=== PATIENT | female | born 1960 | race Caucasian/White ===

== ENCOUNTER 2016-12-05 12:17 | Emergency (ER) | payer MEDICARE, SELFPAY ==
--- NOTE | 2016-12-05 13:50 | EDM.PDOC ---
ED HPI GENERAL MEDICAL PROBLEM - General Chief Complaint: General Stated Complaint: COPD Time Seen by Provider: 12/05/16 12:55 Source of Information: Reports: Patient History Limitations: Reports: No Limitations - History of Present Illness INITIAL COMMENTS - FREE TEXT/NARRATIVE: Pt states that she is "probably going to get diagnosed with COPD on December 13 because that is when I am getting a Ct scan. I am having pain on my whole right side from the COPD, I don't know what the symptoms are but it seems to go together". States that she is on percocet for pain but ran out and because she was smoking marijuana, she lost her contract with the pain clinic. States that the pain causes pressure and she feels like she may "white out but not black out " . Pt very anxious and jittery, diaphoretic, but denies any n/v/d or other symptoms. Pt began crying when telling the story of how she is out of meds and she needs some to make it to her appointment. States that she has drank this am 3 beers and it helped with her pain. Onset: Unknown/Unsure Duration: Getting Worse Location: Reports: Lower Extremity, Left, Generalized (right side) Quality: Reports: Pressure Improves with: Reports: Medication (percocet) Worsens with: Reports: Movement Right Generalized Pain Score (Numeric/FACES): 10 - Related Data Allergies Allergy/AdvReac Type Severity Reaction Status Date / Time cefaclor [From Ceclor] Allergy Unknown Shortness Unverified 12/05/16 12:48 of Breath celecoxib [From Celebrex] Allergy Unknown UNKNOWN Unverified 12/05/16 12:48 fluticasone [From Flonase] Allergy Unknown Shortness Unverified 12/05/16 12:48 of Breath ibuprofen Allergy Unknown UNKNOWN Unverified 12/05/16 12:48 propoxyphene Allergy Unknown UNKNOWN Unverified 12/05/16 12:48 Home Meds: Home Meds . [Unable to Verify Home Med List] 12/05/16 [History] Past Medical History HEENT History: Reports: Impaired Vision Psychiatric History: Reports: Anxiety, Depression - Past Surgical History HEENT Surgical History: Reports: Other (See Below) Other HEENT Surgeries/Procedures: jaw surgery, TMJ GI Surgical History: Reports: Cholecystectomy, Hernia, Inguinal Social & Family History - Family History Family Medical History: Noncontributory - Tobacco Use Smoking Status *Q: Current Every Day Smoker Years of Tobacco use: 38 Packs/Tins Daily: 1 - Caffeine Use Caffeine Use: Reports: Coffee, Soda - Alcohol Use Days Per Week of Alcohol Use: 5 Number of Drinks Per Day: 3 Total Drinks Per Week: 15 - Recreational Drug Use Recreational Drug Use: Yes Drug Use in Last 12 Months: Yes Recreational Drug Type: Reports: Marijuana/Hashish Recreational Drug Use Frequency: Daily ED ROS GENERAL - Review of Systems Review Of Systems: See Below Constitutional: Reports: Diaphoresis Musculoskeletal: Reports: Muscle Stiffness ED EXAM, GENERAL - Physical Exam Exam: See Below Exam Limited By: No Limitations General Appearance: Alert, WD/WN, No Apparent Distress Eye Exam: Bilateral Eye: PERRL Nose: Normal Inspection, Normal Mucosa, No Blood Throat/Mouth: Normal Inspection, Normal Lips, Normal Teeth, Normal Gums, Normal Oropharynx, Normal Voice, No Airway Compromise Head: Atraumatic, Normocephalic Neck: Normal Inspection, Supple, Non-Tender, Full Range of Motion Respiratory/Chest: No Respiratory Distress, Lungs Clear, Normal Breath Sounds, No Accessory Muscle Use, Chest Non-Tender Cardiovascular: Normal Peripheral Pulses, Regular Rate, Rhythm, No Edema, No Gallop, No JVD, No Murmur, No Rub Back Exam: Normal Inspection, Full Range of Motion, NT Neurological: Alert, Oriented, CN II-XII Intact, Normal Cognition, Normal Gait, Normal Reflexes, No Motor/Sensory Deficits Psychiatric: Anxious, Tearful Skin Exam: Diaphoretic Course - Vital Signs Last Recorded V/S: Last Vital Signs Temp 96.2 F 12/05/16 12:27 Pulse 128 H 12/05/16 12:27 Resp 18 12/05/16 12:27 BP 139/98 H 12/05/16 12:27 Pulse Ox 97 12/05/16 12:27 - Re-Assessments/Exams Free Text/Narrative Re-Assessment/Exam: 12/05/16 12:55 informed pt that due to her symptoms, an chest x-ray and neck x-ray would need to be obtained to rule out any major injuries. Pt refused and stated that she did not need that bc she had an MRI last year and she just needed medication to get her through until her appointment. 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 Pt states " i really don't need another bill , so I will just go home and try to manage the pain myself, I have other stuff I can take to help like marijuana." Pt signed out AMA after I explained the risk of not obtaining appropriate exams to evaluate her condition. Pt verbalizes understanding. Departure - Departure Time of Disposition: 13:05 Disposition: Against Medical Advice 07 Preliminary Cause of *Q: Sepsis & Multi System Organ Failure Condition: Good Clinical Impression: Chronic pain Qualifiers: Chronic pain type: other chronic pain Qualified Code(s): G89.29 - Other chronic pain - Discharge Information Forms: ED Department Discharge Additional Instructions: return for any worsening symptoms.
== END 2016-12-05 13:10 | disposition left against medical advice (07) ==
LOC: DL.ED 12:17
CPT/HCPCS: 99281; 99282

== ENCOUNTER 2017-01-30 07:40 | Emergency (ER) | payer MEDICARE, SELFPAY ==
[2017-01-30] MEDS ORDERED: HYDROmorphone 1 MG/ML Syringe IVPUSH ONE (08:31)
--- NOTE | 2017-01-30 08:49 | EDM.PDOC ---
ED HPI GENERAL MEDICAL PROBLEM - General Chief Complaint: Neurological Problem Stated Complaint: PAIN, RT SIDE Time Seen by Provider: 01/30/17 08:30 Source of Information: Reports: Patient History Limitations: Reports: No Limitations - History of Present Illness INITIAL COMMENTS - FREE TEXT/NARRATIVE: This 56 yo female patient reports to the ED with increased pain on her right side. The patient reports her pain is an acute onset of increased chronic pain. The patient reports she has seen Dr. Durant for management (was started on Oxycodone, but the pain medication was stopped due to the patient smoking marijuana). The patient was then referred to pain management. The patient reports that during her pain management appointments she saw cardiology, physical therapy, and a kidney specialist. The patient reports she had to request an appointment with a neurologist. Once the patient finally saw a neurologist, she was given an injection in her back. The patient reports her pain has been getting worse over the past 2-3 days. The patient reports she has been smoking marijuana, taking muscle relaxers and continues to be in the bathtub. The patient believes she has an appointment with Dr. Durant either this week or next week. The patient also reports she has a follow-up appointment with neurology in about 1 month. Onset: Gradual Duration: Chronic, Getting Worse Location: Reports: Upper Extremity, Right, Lower Extremity, Right Quality: Reports: Ache, Sharp Severity: Severe Improves with: Reports: Other (Tylenol, aspirin and baths) Worsens with: Reports: Movement Context: Reports: Other Right Pain Score (Numeric/FACES): 10 - Related Data Allergies Allergy/AdvReac Type Severity Reaction Status Date / Time cefaclor [From Ceclor] Allergy Unknown Shortness Verified 01/30/17 09:20 of Breath celecoxib [From Celebrex] Allergy Unknown UNKNOWN Verified 01/30/17 09:20 ibuprofen Allergy Unknown UNKNOWN Verified 01/30/17 09:20 propoxyphene Allergy Unknown UNKNOWN Verified 01/30/17 09:20 Home Meds: Home Meds Albuterol [IJD: Ventolin HFA] 2 puff INH ASDIRECTED PRN 01/30/17 [History] Azelastine [Astelin Nasal Soln] 2 puff .ROUTE BID 01/30/17 [History] Budesonide/Formoterol [Symbicort 160-4.5 MCG] 2 puff INH BID 01/30/17 [History] Rosuvastatin Calcium 1 tab PO BEDTIME 01/30/17 [History] Venlafaxine HCl [Venlafaxine HCl] 2 tab PO BID 01/30/17 [History] tiZANidine [Zanaflex] 1 tab PO TID 01/30/17 [History] traZODone HCl [Trazodone HCl] 1 tab PO BEDTIME 01/30/17 [History] Past Medical History HEENT History: Reports: Impaired Vision Cardiovascular History: Reports: High Cholesterol Respiratory History: Reports: Asthma Musculoskeletal History: Reports: Other (See Below) Other Musculoskeletal History: chronic nerve pain to the right side of her body Psychiatric History: Reports: Anxiety, Depression - Past Surgical History HEENT Surgical History: Reports: Other (See Below) Other HEENT Surgeries/Procedures: jaw surgery, TMJ GI Surgical History: Reports: Cholecystectomy, Hernia, Inguinal Social & Family History - Family History Family Medical History: Noncontributory - Tobacco Use Smoking Status *Q: Current Status Unknown Years of Tobacco use: 38 Packs/Tins Daily: 1 Tobacco Use Comment: used chantix, states at this time she is not smoking. - Caffeine Use Caffeine Use: Reports: Soda - Alcohol Use Days Per Week of Alcohol Use: 5 Number of Drinks Per Day: 3 Total Drinks Per Week: 15 - Recreational Drug Use Recreational Drug Use: Yes Drug Use in Last 12 Months: Yes Recreational Drug Type: Reports: Marijuana/Hashish Recreational Drug Use Frequency: Daily ED ROS GENERAL - Review of Systems Review Of Systems: ROS reveals no pertinent complaints other than HPI. ED EXAM, NEURO - Physical Exam Exam: See Below Exam Limited By: No Limitations General Appearance: Alert, WD/WN, Moderate Distress, Thin Eye Exam: Bilateral Eye: EOMI, Normal Inspection, PERRL (sluggish, but reactive) Ears: Normal External Exam, Normal Canal, Hearing Grossly Normal, Normal TMs Nose: Normal Inspection, Normal Mucosa, No Blood Throat/Mouth: Normal Inspection, Normal Lips, Normal Teeth, Normal Gums, Normal Oropharynx, Normal Voice, No Airway Compromise Head Exam: Atraumatic, Normocephalic Neck: Normal Inspection, Supple, Non-Tender, Full Range of Motion Respiratory/Chest: No Respiratory Distress, Lungs Clear, Normal Breath Sounds, No Accessory Muscle Use, Chest Non-Tender Cardiovascular: Normal Peripheral Pulses, Regular Rate, Rhythm, No Edema, No Gallop, No JVD, No Murmur, No Rub GI/Abdominal: Normal Bowel Sounds, Soft, Non-Tender, No Organomegaly, No Distention, No Abnormal Bruit, No Mass (Female) Exam: Deferred Rectal (Female) Exam: Deferred Neurological: Alert, Normal Mood/Affect, Difficulty Walking Back Exam: Paraspinal Tenderness (right lower back) Extremities: Normal Inspection, Normal Range of Motion, Non-Tender, No Pedal Edema, Normal Capillary Refill Psychiatric: Anxious, Depressed Mood, Tearful Skin Exam: Warm, Dry, Intact, Normal Color, No Rash Course - Vital Signs Last Recorded V/S: Last Vital Signs Temp 35.9 C 01/30/17 07:55 Pulse 109 H 01/30/17 07:55 Resp 20 01/30/17 07:55 BP 124/89 01/30/17 07:55 Pulse Ox 98 01/30/17 07:55 - Orders/Labs/Meds Labs: Laboratory Tests 01/30/17 01/30/17 01/30/17 Range/Units 08:47 08:47 08:47 WBC 16.9 H (5.0-10.0) 10^3/uL RBC 4.59 (4.2-5.4) 10^6/uL Hgb 15.8 (12.0-16.0) g/dL Hct 47.8 H (37.0-47.0) % MCV 104.1 H (80-100) fL MCH 34.4 H (27.0-34.0) pg MCHC 33.1 (33.0-35.0) g/dL Plt Count 565 H (150-450) 10^3/uL Neut % (Auto) 72.7 (42.2-75.2) % Lymph % (Auto) 18.8 L (20.5-50.1) % [place] % (Auto) 8.1 H (2-8) % Eos % (Auto) 0.1 L (1.0-3.0) % Baso % (Auto) 0.3 (0.0-1.0) % Sodium 137 (135-145) mmol/L Potassium 4.4 (3.6-5.0) mmol/L Chloride 97 L (101-111) mmol/L Carbon Dioxide 27.0 (21.0-31.0) mmol/L Anion Gap 17.4 BUN 19 H (7-18) mg/dL Creatinine 0.9 (0.6-1.3) mg/dL Est Cr Clr Drug Dosing TNP Estimated GFR (MDRD) > 60 BUN/Creatinine Ratio 21.11 Glucose 116 H (74-105) mg/dL Calcium 9.9 (8.4-10.2) mg/dl Total Bilirubin 0.7 (0.2-1.0) mg/dL AST 25 (10-42) IU/L ALT 16 (10-60) IU/L Alkaline Phosphatase 85 (42-121) IU/L Total Protein 8.5 H (6.7-8.2) g/dl Albumin 4.9 (3.2-5.5) g/dl Globulin 3.6 Albumin/Globulin Ratio 1.36 Urine Color (YELLOW) Urine Appearance (CLEAR) Urine pH (5.0-9.0) Ur Specific [place] (1.005-1.030) Urine Protein (NEGATIVE) Urine Glucose (UA) (NEGATIVE) Urine Ketones (NEGATIVE) Urine Occult Blood (NEGATIVE) Urine Nitrite (NEGATIVE) Urine Bilirubin (NEGATIVE) Urine Urobilinogen (0.2-1.0) mg/dL Ur Leukocyte Esterase (NEGATIVE) Urine RBC /HPF Urine WBC (0-5/HPF) /HPF Ur Epithelial Cells /HPF Urine Bacteria (0-FEW/HPF) /HPF Hyaline Casts /LPF Urine Mucus /LPF Urine Opiates Screen (NEGATIVE) Ur Oxycodone Screen (NEGATIVE) Urine Methadone Screen (NEGATIVE) Ur Barbiturates Screen (NEGATIVE) U Tricyclic Antidepress (NEGATIVE) Ur Phencyclidine Scrn (NEGATIVE) Ur Amphetamine Screen (NEGATIVE) U Methamphetamines Scrn (NEGATIVE) Urine MDMA Screen (NEGATIVE) U Benzodiazepines Scrn (NEGATIVE) Urine Cocaine Screen (NEGATIVE) U Marijuana (THC) Screen (NEGATIVE) Ethyl Alcohol < 5 mg/dL 01/30/17 01/30/17 Range/Units 08:48 08:48 WBC (5.0-10.0) 10^3/uL RBC (4.2-5.4) 10^6/uL Hgb (12.0-16.0) g/dL Hct (37.0-47.0) % MCV (80-100) fL MCH (27.0-34.0) pg MCHC (33.0-35.0) g/dL Plt Count (150-450) 10^3/uL Neut % (Auto) (42.2-75.2) % Lymph % (Auto) (20.5-50.1) % [place] % (Auto) (2-8) % Eos % (Auto) (1.0-3.0) % Baso % (Auto) (0.0-1.0) % Sodium (135-145) mmol/L Potassium (3.6-5.0) mmol/L Chloride (101-111) mmol/L Carbon Dioxide (21.0-31.0) mmol/L Anion Gap BUN (7-18) mg/dL Creatinine (0.6-1.3) mg/dL Est Cr Clr Drug Dosing Estimated GFR (MDRD) BUN/Creatinine Ratio Glucose (74-105) mg/dL Calcium (8.4-10.2) mg/dl Total Bilirubin (0.2-1.0) mg/dL AST (10-42) IU/L ALT (10-60) IU/L Alkaline Phosphatase (42-121) IU/L Total Protein (6.7-8.2) g/dl Albumin (3.2-5.5) g/dl Globulin Albumin/Globulin Ratio Urine Color Straw (YELLOW) Urine Appearance Cloudy (CLEAR) Urine pH 5.5 (5.0-9.0) Ur Specific Bowie 1.020 (1.005-1.030) Urine Protein 30 H (NEGATIVE) Urine Glucose (UA) Negative (NEGATIVE) Urine Ketones Trace H (NEGATIVE) Urine Occult Blood Trace-lysed H (NEGATIVE) Urine Nitrite Negative (NEGATIVE) Urine Bilirubin Moderate H (NEGATIVE) Urine Urobilinogen 0.2 (0.2-1.0) mg/dL Ur Leukocyte Esterase Negative (NEGATIVE) Urine RBC 0-5 /HPF Urine WBC 0-5 (0-5/HPF) /HPF Ur Epithelial Cells Many H /HPF Urine Bacteria Moderate H (0-FEW/HPF) /HPF Hyaline Casts Few H /LPF Urine Mucus Many H /LPF Urine Opiates Screen Negative (NEGATIVE) Ur Oxycodone Screen Positive H (NEGATIVE) Urine Methadone Screen Negative (NEGATIVE) Ur Barbiturates Screen Negative (NEGATIVE) U Tricyclic Antidepress Negative (NEGATIVE) Ur Phencyclidine Scrn Negative (NEGATIVE) Ur Amphetamine Screen Negative (NEGATIVE) U Methamphetamines Scrn Negative (NEGATIVE) Urine MDMA Screen Negative (NEGATIVE) U Benzodiazepines Scrn Negative (NEGATIVE) Urine Cocaine Screen Negative (NEGATIVE) U Marijuana (THC) Screen Positive H (NEGATIVE) Ethyl Alcohol mg/dL Meds: Medications Discontinued Medications Generic Name Dose Route Start Last Admin Trade Name Beatriz PRN Reason Stop Dose Admin Gabapentin 300 mg 01/30/17 09:24 Neurontin PO 01/30/17 09:25 ONETIME ONE Hydromorphone HCl 1 mg 01/30/17 08:31 01/30/17 08:45 Dilaudid IVPUSH 01/30/17 08:32 1 mg ONETIME ONE Administration Methylprednisolone Sodium Succinate 40 mg 01/30/17 09:24 01/30/17 09:31 Solu-Medrol IVPUSH 01/30/17 09:25 40 mg ONETIME ONE Administration Departure - Departure Time of Disposition: 09:43 Disposition: Home, Self-Care 01 Condition: Fair Clinical Impression: Neuropathy Chronic pain Qualifiers: Chronic pain type: other chronic pain Qualified Code(s): G89.29 - Other chronic pain - Discharge Information Instructions: Neuropathic Pain, Chronic Pain Forms: ED Department Discharge Care Plan Goals: The patient was advised of the examination and lab results during the visit. The patient was given a dose of IV Dilaudid, IV SoluMedrol and PO Gabapentin. The patient was discharged with a script for Gabapentin (300 mg) #20 to take 1 by mouth daily for nerve pain. The patient should follow-up with her primary care facility for continued evaluation and further treatment. If the patient has any additional symptoms or concerns, the patient should visit her primary care facility or return to the emergency department.
[2017-01-30 09:13] LABS: CHLORIDE,CL 97 mmol/L (101-111); SODIUM,NA 137 mmol/L (135-145)
[2017-01-30] MEDS ORDERED: methylPREDNISolone Sodium Succinate 40 MG/1 ML SDV IVPUSH ONE (09:24)
[2017-01-30] MEDS ORDERED: Gabapentin 300 MG Cap PO ONE (09:24)
[2017-01-30 09:31] VITALS: BP 124/89
== END 2017-01-30 10:05 | disposition home or self-care (01) ==
LOC: DL.ED 07:40
DX: G62.9 Polyneuropathy, unspecified (principal); G89.29 Other chronic pain; E78.00 Pure hypercholesterolemia, unspecified; H54.7 Unspecified visual loss; J45.909 Unspecified asthma, uncomplicated; F41.9 Anxiety disorder, unspecified; F32.9 Major depressive disorder, single episode, unspecified; Z90.49 Acquired absence of other specified parts of digestive tract; Z88.8 Allergy status to other drugs, medicaments and biological substances
CPT/HCPCS: 36415; 80053; 80305; 81001; 85025; 96374; 96375; 99283; A9270; G0480; J1170; J2920

== ENCOUNTER 2017-02-01 03:40 | Emergency (ER) | payer MEDICARE, SELFPAY ==
[2017-02-01 03:58] VITALS: BP 160/122
[2017-02-01] MEDS ORDERED: Promethazine 25 MG/ML SDV IM ONE (04:16)
[2017-02-01] MEDS ORDERED: Butorphanol 2 MG/ML SDV IM ONE (04:16)
--- NOTE | 2017-02-01 04:17 | EDM.PDOC ---
ED HPI GENERAL MEDICAL PROBLEM - General Chief Complaint: General Stated Complaint: PAIN Time Seen by Provider: 02/01/17 04:12 Source of Information: Reports: Patient, Old Records History Limitations: Reports: No Limitations - History of Present Illness INITIAL COMMENTS - FREE TEXT/NARRATIVE: was seen here 2 days ago for same, states [place] not helping & has appt with Neuro next week for more tests. states had injection from Neuro 5 years ago that evidently wored off now pain back and it's her entire right side of body. Right Generalized Pain Score (Numeric/FACES): 10 - Related Data Allergies Allergy/AdvReac Type Severity Reaction Status Date / Time cefaclor [From Ceclor] Allergy Unknown Shortness Verified 01/30/17 09:20 of Breath celecoxib [From Celebrex] Allergy Unknown UNKNOWN Verified 01/30/17 09:20 ibuprofen Allergy Unknown UNKNOWN Verified 01/30/17 09:20 propoxyphene Allergy Unknown UNKNOWN Verified 01/30/17 09:20 Home Meds: Home Meds Albuterol [IJD: Ventolin HFA] 2 puff INH ASDIRECTED PRN 01/30/17 [History] Azelastine [Astelin Nasal Soln] 2 puff .ROUTE BID 01/30/17 [History] Budesonide/Formoterol [Symbicort 160-4.5 MCG] 2 puff INH BID 01/30/17 [History] Rosuvastatin Calcium 1 tab PO BEDTIME 01/30/17 [History] Venlafaxine HCl [Venlafaxine HCl] 2 tab PO BID 01/30/17 [History] tiZANidine [Zanaflex] 1 tab PO TID 01/30/17 [History] traZODone HCl [Trazodone HCl] 1 tab PO BEDTIME 01/30/17 [History] Past Medical History HEENT History: Reports: Impaired Vision Cardiovascular History: Reports: High Cholesterol Respiratory History: Reports: Asthma Musculoskeletal History: Reports: Other (See Below) Other Musculoskeletal History: chronic nerve pain to the right side of her body Psychiatric History: Reports: Anxiety, Depression - Past Surgical History HEENT Surgical History: Reports: Other (See Below) Other HEENT Surgeries/Procedures: jaw surgery, TMJ GI Surgical History: Reports: Cholecystectomy, Hernia, Inguinal Social & Family History - Family History Family Medical History: Noncontributory - Tobacco Use Smoking Status *Q: Current Status Unknown Years of Tobacco use: 38 Packs/Tins Daily: 1 - Caffeine Use Caffeine Use: Reports: Soda - Alcohol Use Days Per Week of Alcohol Use: 5 Number of Drinks Per Day: 3 Total Drinks Per Week: 15 - Recreational Drug Use Recreational Drug Use: Yes Drug Use in Last 12 Months: Yes Recreational Drug Type: Reports: Marijuana/Hashish Recreational Drug Use Frequency: Daily ED ROS GENERAL - Review of Systems Review Of Systems: ROS reveals no pertinent complaints other than HPI. ED EXAM, GENERAL - Physical Exam Exam: See Below Exam Limited By: No Limitations General Appearance: Alert, WD/WN, Mild Distress, Other (crying writhing on gurney, restless.) Eye Exam: Bilateral Eye: PERRL (pupils ER @ 4mm) Ears: Hearing Grossly Normal Throat/Mouth: Normal Voice, No Airway Compromise Head: Atraumatic Neck: Non-Tender, Full Range of Motion Respiratory/Chest: No Respiratory Distress Cardiovascular: Regular Rate, Rhythm GI/Abdominal: Soft, Non-Tender Back Exam: Normal Inspection, Full Range of Motion Extremities: Normal Inspection Neurological: Alert, Oriented, Normal Cognition, Normal Gait, No Motor/Sensory Deficits Psychiatric: Anxious, Tearful Skin Exam: Warm, Dry, Normal Color Lymphatic: No Adenopathy Course - Vital Signs Last Recorded V/S: Last Vital Signs Temp Pulse 92 02/01/17 03:57 Resp 20 02/01/17 03:57 BP 160/122 H 02/01/17 03:57 Pulse Ox 100 02/01/17 03:57 - Orders/Labs/Meds Meds: Medications Discontinued Medications Generic Name Dose Route Start Last Admin Trade Name Beatriz PRN Reason Stop Dose Admin Butorphanol Tartrate 2 mg 02/01/17 04:16 02/01/17 04:24 Stadol IM 02/01/17 04:17 2 mg ONETIME ONE Administration Promethazine HCl 25 mg 02/01/17 04:16 02/01/17 04:24 Phenergan IM 02/01/17 04:17 25 mg ONETIME ONE Administration Departure - Departure Time of Disposition: 04:52 Disposition: Home, Self-Care 01 Condition: Fair Clinical Impression: Neuropathy - Discharge Information Instructions: Neuropathic Pain Referrals: PCP,None [Primary Care Provider] - Forms: ED Department Discharge Additional Instructions: 1) follow up with family doctor or clinic or [facility]. 2) recheck as needed
== END 2017-02-01 04:49 | disposition home or self-care (01) ==
LOC: DL.ED 03:40
DX: G62.9 Polyneuropathy, unspecified (principal); H54.7 Unspecified visual loss; E78.00 Pure hypercholesterolemia, unspecified; Z90.49 Acquired absence of other specified parts of digestive tract; Z88.8 Allergy status to other drugs, medicaments and biological substances
CPT/HCPCS: 96372; 99283; J0595; J2550

== ENCOUNTER 2017-05-06 08:41 | Emergency (ER) | payer MEDICARE, OTHER, SELFPAY ==
--- NOTE | 2017-05-06 08:45 | EDM.PDOC ---
ED HPI GENERAL MEDICAL PROBLEM - General Chief Complaint: Upper Extremity Injury/Pain Stated Complaint: SICK Time Seen by Provider: 05/06/17 08:44 Source of Information: Reports: Patient, RN, RN Notes Reviewed History Limitations: Reports: No Limitations - History of Present Illness INITIAL COMMENTS - FREE TEXT/NARRATIVE: Pt presents to the ER with c/o "nerve pain" on the entire right side of her body. She states she has had injections about 5-6 years ago. She states she has been doctoring with Dr. Durant, but "nothing has been working". The patient continued stating that her constant pain is from the "nerve pain" and the prior injections. She states she has been nauseated with vomiting of green/yellow bile appearing production. Pt admits to numbness in 3 toes on the right foot, as well as tingling down the right arm. Patient states she finds it difficult to find a comfortable position, but that the bath tub works at times. Patient admits to numbness to the right side of her face at times, as well as headaches to the right side of the head. She denies fever or chills, abdominal pain or diarrhea. Onset: Unknown/Unsure Location: Reports: Lower Extremity, Left, Lower Extremity, Right, Generalized ( right side of body) Quality: Reports: Burning Severity: Severe Improves with: Reports: None Worsens with: Reports: None Associated Symptoms: Reports: Nausea/Vomiting Right Generalized Pain Score (Numeric/FACES): 10 - Related Data Allergies Allergy/AdvReac Type Severity Reaction Status Date / Time cefaclor [From Ceclor] Allergy Unknown Shortness Verified 01/30/17 09:20 of Breath celecoxib [From Celebrex] Allergy Unknown UNKNOWN Verified 01/30/17 09:20 ibuprofen Allergy Unknown UNKNOWN Verified 01/30/17 09:20 propoxyphene Allergy Unknown UNKNOWN Verified 01/30/17 09:20 Home Meds: Home Meds Albuterol [IJD: Ventolin HFA] 2 puff INH ASDIRECTED PRN 01/30/17 [History] Azelastine [Astelin Nasal Soln] 2 puff .ROUTE BID 01/30/17 [History] Budesonide/Formoterol [Symbicort 160-4.5 MCG] 2 puff INH BID 01/30/17 [History] Rosuvastatin Calcium 1 tab PO BEDTIME 01/30/17 [History] Venlafaxine HCl [Venlafaxine HCl] 2 tab PO BID 01/30/17 [History] tiZANidine [Zanaflex] 1 tab PO BID 01/30/17 [History] traZODone HCl [Trazodone HCl] 1 tab PO BEDTIME 01/30/17 [History] Gabapentin [Neurontin] 1 cap PO BID 05/06/17 [History] Past Medical History HEENT History: Reports: Impaired Vision Cardiovascular History: Reports: High Cholesterol Respiratory History: Reports: Asthma Musculoskeletal History: Reports: Other (See Below) Other Musculoskeletal History: chronic nerve pain to the right side of her body Psychiatric History: Reports: Anxiety, Depression - Past Surgical History HEENT Surgical History: Reports: Other (See Below) Other HEENT Surgeries/Procedures: jaw surgery, TMJ GI Surgical History: Reports: Cholecystectomy, Hernia, Inguinal Social & Family History - Family History Family Medical History: Noncontributory - Tobacco Use Smoking Status *Q: Current Status Unknown Years of Tobacco use: 38 Packs/Tins Daily: 1 - Caffeine Use Caffeine Use: Reports: Soda - Alcohol Use Days Per Week of Alcohol Use: 5 Number of Drinks Per Day: 3 Total Drinks Per Week: 15 - Recreational Drug Use Recreational Drug Use: Yes Drug Use in Last 12 Months: Yes Recreational Drug Type: Reports: Marijuana/Hashish Recreational Drug Use Frequency: Daily ED ROS GENERAL - Review of Systems Review Of Systems: ROS reveals no pertinent complaints other than HPI. ED EXAM, GENERAL - Physical Exam Exam: See Below Exam Limited By: Other (Patient very anxious, up ambulating, cannot sit still, flight of ideas and thoughts) General Appearance: Alert, Anxious, Moderate Distress Eye Exam: Bilateral Eye: Conjunctival Injection, EOMI Ears: Normal External Exam, Hearing Grossly Normal Nose: Normal Inspection Throat/Mouth: Normal Inspection, Normal Voice, No Airway Compromise Head: Atraumatic, Normocephalic Neck: Normal Inspection, Supple, Non-Tender, Full Range of Motion Respiratory/Chest: No Respiratory Distress, Lungs Clear (diminished), No Accessory Muscle Use, Chest Non-Tender Cardiovascular: Normal Peripheral Pulses, Regular Rate, Rhythm, No Edema, No Gallop, No JVD, No Murmur, No Rub Peripheral Pulses: 2+: Radial (L), Radial (R) GI/Abdominal: Normal Bowel Sounds, Soft, Non-Tender, No Organomegaly, No Distention, No Abnormal Bruit, No Mass (Female) Exam: Deferred Rectal (Female) Exam: Deferred Back Exam: Normal Inspection, Full Range of Motion Extremities: Normal Inspection, Normal Range of Motion, Non-Tender, No Pedal Edema, Normal Capillary Refill Neurological: Alert, Oriented, Other (numbness to toes on the right foot, numbness to the right side of the face, tingling down right arm) Psychiatric: Anxious, Tearful, Other (flight of thoughts, very anxious and restless) Skin Exam: Warm, Dry, Intact, Normal Color, No Rash Lymphatic: No Adenopathy Course - Vital Signs Last Recorded V/S: Last Vital Signs Temp 96.1 F 05/06/17 08:42 Pulse 101 H 05/06/17 08:42 Resp 18 05/06/17 08:42 BP 126/90 05/06/17 08:42 Pulse Ox 97 05/06/17 08:42 - Orders/Labs/Meds Orders: Active Orders 24 hr Category Date Time Status Peripheral IV Care [RC] . DIRECTED Care 05/06/17 08:58 Active Sodium Chloride 0.9% [Saline Flush] Med 05/06/17 08:58 Active 10 ml FLUSH ASDIRECTED PRN Peripheral IV Insertion Adult [OM.PC] Stat Oth 05/06/17 08:57 Ordered Medication Orders Sodium Chloride (Saline Flush) 10 ml FLUSH ASDIRECTED PRN PRN Reason: Keep Vein Open Last Admin: 05/06/17 09:11 Dose: 10 ml Labs: Laboratory Tests 05/06/17 05/06/17 05/06/17 Range/Units 09:10 09:10 09:10 WBC 15.7 H (5.0-10.0) 10^3/uL RBC 4.50 (4.2-5.4) 10^6/uL Hgb 15.1 (12.0-16.0) g/dL Hct 46.2 (37.0-47.0) % MCV 102.7 H (80-100) fL MCH 33.6 (27.0-34.0) pg MCHC 32.7 L (33.0-35.0) g/dL Plt Count 581 H (150-450) 10^3/uL Neut % (Auto) 76.6 H (42.2-75.2) % Lymph % (Auto) 15.4 L (20.5-50.1) % [place] % (Auto) 7.6 (2-8) % Eos % (Auto) 0.1 L (1.0-3.0) % Baso % (Auto) 0.3 (0.0-1.0) % Sodium 138 (135-145) mmol/L Potassium 4.5 (3.6-5.0) mmol/L Chloride 103 (101-111) mmol/L Carbon Dioxide 25.0 (21.0-31.0) mmol/L Anion Gap 14.5 BUN 6 L (7-18) mg/dL Creatinine 0.9 (0.6-1.3) mg/dL Est Cr Clr Drug Dosing 65.34 mL/min Estimated GFR (MDRD) > 60 BUN/Creatinine Ratio 6.66 Glucose 132 H (74-105) mg/dL Calcium 9.8 (8.4-10.2) mg/dl Magnesium 2.0 (1.8-2.5) mg/dL Total Bilirubin 0.7 (0.2-1.0) mg/dL AST 25 (10-42) IU/L ALT 21 (10-60) IU/L Alkaline Phosphatase 102 (42-121) IU/L Total Protein 7.9 (6.7-8.2) g/dl Albumin 4.5 (3.2-5.5) g/dl Globulin 3.4 Albumin/Globulin Ratio 1.32 Amylase 39 (28-100) U/L Lipase 27 (22-51) U/L Urine Color (YELLOW) Urine Appearance (CLEAR) Urine pH (5.0-9.0) Ur Specific [place] (1.005-1.030) Urine Protein (NEGATIVE) Urine Glucose (UA) (NEGATIVE) Urine Ketones (NEGATIVE) Urine Occult Blood (NEGATIVE) Urine Nitrite (NEGATIVE) Urine Bilirubin (NEGATIVE) Urine Urobilinogen (0.2-1.0) mg/dL Ur Leukocyte Esterase (NEGATIVE) Urine RBC /HPF Urine WBC (0-5/HPF) /HPF Ur Epithelial Cells /HPF Urine Bacteria (0-FEW/HPF) /HPF Urine Mucus /LPF Urine Yeast (0/HPF) /HPF Urine Opiates Screen (NEGATIVE) Ur Oxycodone Screen (NEGATIVE) Urine Methadone Screen (NEGATIVE) Ur Barbiturates Screen (NEGATIVE) U Tricyclic Antidepress (NEGATIVE) Ur Phencyclidine Scrn (NEGATIVE) Ur Amphetamine Screen (NEGATIVE) U Methamphetamines Scrn (NEGATIVE) Urine MDMA Screen (NEGATIVE) U Benzodiazepines Scrn (NEGATIVE) Urine Cocaine Screen (NEGATIVE) U Marijuana (THC) Screen (NEGATIVE) Ethyl Alcohol < 5 mg/dL 05/06/17 05/06/17 Range/Units 09:30 09:30 WBC (5.0-10.0) 10^3/uL RBC (4.2-5.4) 10^6/uL Hgb (12.0-16.0) g/dL Hct (37.0-47.0) % MCV (80-100) fL MCH (27.0-34.0) pg MCHC (33.0-35.0) g/dL Plt Count (150-450) 10^3/uL Neut % (Auto) (42.2-75.2) % Lymph % (Auto) (20.5-50.1) % Martin % (Auto) (2-8) % Eos % (Auto) (1.0-3.0) % Baso % (Auto) (0.0-1.0) % Sodium (135-145) mmol/L Potassium (3.6-5.0) mmol/L Chloride (101-111) mmol/L Carbon Dioxide (21.0-31.0) mmol/L Anion Gap BUN (7-18) mg/dL Creatinine (0.6-1.3) mg/dL Est Cr Clr Drug Dosing mL/min Estimated GFR (MDRD) BUN/Creatinine Ratio Glucose (74-105) mg/dL Calcium (8.4-10.2) mg/dl Magnesium (1.8-2.5) mg/dL Total Bilirubin (0.2-1.0) mg/dL AST (10-42) IU/L ALT (10-60) IU/L Alkaline Phosphatase (42-121) IU/L Total Protein (6.7-8.2) g/dl Albumin (3.2-5.5) g/dl Globulin Albumin/Globulin Ratio Amylase (28-100) U/L Lipase (22-51) U/L Urine Color Yellow (YELLOW) Urine Appearance Cloudy (CLEAR) Urine pH 6.5 (5.0-9.0) Ur Specific [place] 1.020 (1.005-1.030) Urine Protein 30 H (NEGATIVE) Urine Glucose (UA) Negative (NEGATIVE) Urine Ketones 15 H (NEGATIVE) Urine Occult Blood Trace-lysed H (NEGATIVE) Urine Nitrite Negative (NEGATIVE) Urine Bilirubin Small H (NEGATIVE) Urine Urobilinogen 0.2 (0.2-1.0) mg/dL Ur Leukocyte Esterase Negative (NEGATIVE) Urine RBC 0-5 /HPF Urine WBC 0-5 (0-5/HPF) /HPF Ur Epithelial Cells Many H /HPF Urine Bacteria Moderate H (0-FEW/HPF) /HPF Urine Mucus Many H /LPF Urine Yeast Occasional H (0/HPF) /HPF Urine Opiates Screen Negative (NEGATIVE) Ur Oxycodone Screen Negative (NEGATIVE) Urine Methadone Screen Negative (NEGATIVE) Ur Barbiturates Screen Negative (NEGATIVE) U Tricyclic Antidepress Negative (NEGATIVE) Ur Phencyclidine Scrn Negative (NEGATIVE) Ur Amphetamine Screen Negative (NEGATIVE) U Methamphetamines Scrn Negative (NEGATIVE) Urine MDMA Screen Negative (NEGATIVE) U Benzodiazepines Scrn Negative (NEGATIVE) Urine Cocaine Screen Negative (NEGATIVE) U Marijuana (THC) Screen Positive H (NEGATIVE) Ethyl Alcohol mg/dL Meds: Medications Generic Name Dose Route Start Last Admin Trade Name Freq PRN Reason Stop Dose Admin Sodium Chloride 10 ml 05/06/17 08:58 05/06/17 09:11 Saline Flush FLUSH 10 ml ASDIRECTED PRN Administration Keep Vein Open Discontinued Medications Generic Name Dose Route Start Last Admin Trade Name Freq PRN Reason Stop Dose Admin Butorphanol Tartrate 2 mg 05/06/17 09:41 05/06/17 09:49 Stadol IVPUSH 05/06/17 09:42 2 mg ONETIME ONE Administration Sodium Chloride 1,000 mls @ 999 mls/hr 05/06/17 09:01 05/06/17 09:11 Normal Saline IV 05/06/17 10:01 999 mls/hr .BOLUS ONE Administration Lorazepam 1 mg 05/06/17 09:01 05/06/17 09:11 Ativan IVPUSH 05/06/17 09:02 1 mg ONETIME ONE Administration Promethazine HCl 25 mg 05/06/17 08:59 05/06/17 09:11 Phenergan IM 05/06/17 09:00 25 mg ONETIME ONE Administration Departure - Departure Time of Disposition: 10:34 Disposition: Home, Self-Care 01 Condition: Fair Clinical Impression: Neuropathy Nausea & vomiting Qualifiers: Vomiting type: bilious vomiting Qualified Code(s): R11.14 - Bilious vomiting - Discharge Information Instructions: Neuropathic Pain Forms: ED Department Discharge Additional Instructions: Follow up with Dr. Durant next week. - My Orders Last 24 Hours: My Active Orders 05/06/17 08:57 Peripheral IV Insertion Adult [OM.PC] Stat 05/06/17 08:58 Peripheral IV Care [RC] . DIRECTED Sodium Chloride 0.9% [Saline Flush] 10 ml FLUSH ASDIRECTED PRN - Assessment/Plan Last 24 Hours: My Active Orders 05/06/17 08:57 Peripheral IV Insertion Adult [OM.PC] Stat 05/06/17 08:58 Peripheral IV Care [RC] . DIRECTED Sodium Chloride 0.9% [Saline Flush] 10 ml FLUSH ASDIRECTED PRN
[2017-05-06] MEDS ORDERED: Sodium Chloride 0.9% 10 ML Syringe FLUSH PRN (08:58)
[2017-05-06] MEDS ORDERED: Promethazine 25 MG/ML SDV IM ONE (08:59)
[2017-05-06] MEDS ORDERED: LORazepam 2 MG/ML Syringe IVPUSH ONE (09:01)
[2017-05-06] MEDS ORDERED: Sodium Chloride 0.9% 1,000 ML IV ONE (09:01)
[2017-05-06 09:10] VITALS: BP 126/90
[2017-05-06 09:39] LABS: CHLORIDE,CL 103 mmol/L (101-111); SODIUM,NA 138 mmol/L (135-145)
[2017-05-06] MEDS ORDERED: Butorphanol 2 MG/ML SDV IVPUSH ONE (09:41)
== END 2017-05-06 10:44 | disposition home or self-care (01) ==
LOC: DL.ED 08:41
DX: G62.9 Polyneuropathy, unspecified (principal); R11.14 Bilious vomiting; E78.00 Pure hypercholesterolemia, unspecified; J45.909 Unspecified asthma, uncomplicated; F32.9 Major depressive disorder, single episode, unspecified; Z88.1 Allergy status to other antibiotic agents; Z88.6 Allergy status to analgesic agent; Z88.8 Allergy status to other drugs, medicaments and biological substances
CPT/HCPCS: 36415; 80053; 80305; 81001; 82150; 83690; 83735; 85025; 96361; 96372; 96374; 96375; 99284; G0480; J0595; J2060; J2550; J7030; J7050

== ENCOUNTER 2017-05-12 15:53 | Emergency (ER) | payer MEDICARE, SELFPAY ==
[2017-05-12] MEDS ORDERED: Sodium Chloride 0.9% 10 ML Syringe FLUSH PRN (16:48)
[2017-05-12] MEDS ORDERED: Lactated Ringers 1,000 ML IV ONE (16:49)
[2017-05-12] MEDS ORDERED: Ondansetron 4 MG/2 ML SDV IV ONE (16:50)
[2017-05-12] MEDS ORDERED: Famotidine 20 MG/2 ML SDV IVPUSH ONE (16:50)
[2017-05-12 17:28] LABS: CHLORIDE,CL 93 mmol/L (101-111); SODIUM,NA 132 mmol/L (135-145)
[2017-05-12] MEDS ORDERED: Dexamethasone 4 MG/ML SDV IVPUSH ONE (17:38)
[2017-05-12] MEDS ORDERED: LORazepam 2 MG/ML Syringe IVPUSH ONE (17:39)
[2017-05-12] MEDS ORDERED: diphenhydrAMINE 50 MG/ML SDV IVPUSH ONE (17:39)
--- NOTE | 2017-05-12 17:56 | EDM.PDOCBH ---
Scribed by Josephine Jimenez 05/12/17 1904 for Fidel Cameron MD ED HPI GENERAL MEDICAL PROBLEM - General Chief Complaint: Behavioral/Psych Stated Complaint: PAIN, NOT EATEN IN 8-9 DAYS Time Seen by Provider: 05/12/17 16:50 Source of Information: Reports: Patient, RN, RN Notes Reviewed History Limitations: Reports: No Limitations - History of Present Illness INITIAL COMMENTS - FREE TEXT/NARRATIVE: Patient complains of nausea, vomiting and not being able to eat for 8 days. Denies abdominal pain. Patient states she has an uncontrolled neuropathy pain in the right side and the pain has been so bad that she become nauseated. Location: Reports: Abdomen Quality: Reports: Ache Severity: Severe Improves with: Reports: None Worsens with: Reports: None Associated Symptoms: Reports: No Other Symptoms Back Pain Score (Numeric/FACES): 10 - Related Data Allergies Allergy/AdvReac Type Severity Reaction Status Date / Time cefaclor [From Ceclor] Allergy Unknown Shortness Verified 01/30/17 09:20 of Breath celecoxib [From Celebrex] Allergy Unknown UNKNOWN Verified 01/30/17 09:20 ibuprofen Allergy Unknown UNKNOWN Verified 01/30/17 09:20 propoxyphene Allergy Unknown UNKNOWN Verified 01/30/17 09:20 Home Meds: Home Meds Albuterol [IJD: Ventolin HFA] 2 puff INH ASDIRECTED PRN 01/30/17 [History] Azelastine [Astelin Nasal Soln] 2 puff .ROUTE BID 01/30/17 [History] Budesonide/Formoterol [Symbicort 160-4.5 MCG] 2 puff INH BID 01/30/17 [History] Rosuvastatin Calcium 1 tab PO BEDTIME 01/30/17 [History] Venlafaxine HCl [Venlafaxine HCl] 2 tab PO BID 01/30/17 [History] tiZANidine [Zanaflex] 1 tab PO BID 01/30/17 [History] traZODone HCl [Trazodone HCl] 1 tab PO BEDTIME 01/30/17 [History] Gabapentin [Neurontin] 1 cap PO BID 05/06/17 [History] Past Medical History HEENT History: Reports: Impaired Vision Cardiovascular History: Reports: High Cholesterol Respiratory History: Reports: Asthma Musculoskeletal History: Reports: Other (See Below) Other Musculoskeletal History: chronic nerve pain to the right side of her body Psychiatric History: Reports: Anxiety, Depression - Past Surgical History HEENT Surgical History: Reports: Other (See Below) Other HEENT Surgeries/Procedures: jaw surgery, TMJ, missing numerous teeth GI Surgical History: Reports: Appendectomy, Cholecystectomy, Hernia, Inguinal Musculoskeletal Surgical History: Reports: Other (See Below) (L-spinesurgery.) Other Musculoskeletal Surgeries/Procedures:: carpal tunnel, toe surgery Social & Family History - Family History Family Medical History: Noncontributory - Tobacco Use Smoking Status *Q: Current Every Day Smoker Years of Tobacco use: 38 Packs/Tins Daily: 0.4 - Caffeine Use Caffeine Use: Reports: Coffee, Soda - Alcohol Use Days Per Week of Alcohol Use: 5 Number of Drinks Per Day: 3 Total Drinks Per Week: 15 - Recreational Drug Use Recreational Drug Use: Yes Drug Use in Last 12 Months: Yes Recreational Drug Type: Reports: Marijuana/Hashish Recreational Drug Use Frequency: Daily ED ROS GENERAL - Review of Systems Review Of Systems: ROS reveals no pertinent complaints other than HPI. ED EXAM, BEHAVIORAL HEALTH - Physical Exam Exam: See Below Exam Limited By: No Limitations General Appearance: Anxious, Other (slightly aggitated and hyperactive. Chronically ill appearing.Non-toxic in appearance.) Eye Exam: Bilateral Eye: Normal Inspection Ears: Normal External Exam, Normal Canal, Hearing Grossly Normal, Normal TMs Nose: Normal Inspection, Normal Mucosa, No Blood Throat/Mouth: Other (multipe missing teeth. Dry oral membranes.) Head: Atraumatic, Normocephalic Neck: Normal Inspection, Supple, Non-Tender, Full Range of Motion Respiratory/Chest: No Respiratory Distress, Lungs Clear, Normal Breath Sounds, No Accessory Muscle Use, Chest Non-Tender Cardiovascular: Regular Rate, Rhythm, Tachycardia GI/Abdominal: Normal Bowel Sounds, Soft, Non-Tender, No Organomegaly, No Distention, No Abnormal Bruit, No Mass (Female) Exam: Deferred Rectal (Female) Exam: Deferred Back Exam: Normal Inspection, Full Range of Motion, NT Extremities: Normal Inspection, Normal Range of Motion, Non-Tender, Normal Capillary Refill, No Pedal Edema Neurological: Alert, Normal Mood/Affect, CN II-XII Intact, Normal Cognition, Normal Gait, Normal Reflexes, No Motor/Sensory Deficits, Oriented x 3 Psychiatric: Agitated, Other (anxious) Skin Exam: Warm, Dry, Intact, Normal color, No rash COURSE, BEHAVIORAL HEALTH COMP - Course Vital Signs: Last Vital Signs Temp 36.5 C 05/12/17 17:32 Pulse 113 H 05/12/17 17:32 Resp 22 H 05/12/17 17:32 BP 99/50 L 05/12/17 17:32 Pulse Ox 100 05/12/17 17:32 Orders, Labs, Meds: Active Orders 24 hr Category Date Time Status Peripheral IV Care [RC] . DIRECTED Care 05/12/17 16:49 Active Sodium Chloride 0.9% [Saline Flush] Med 05/12/17 16:48 Active 10 ml FLUSH ASDIRECTED PRN Peripheral IV Insertion Adult [OM.PC] Stat Oth 05/12/17 16:49 Ordered Medication Orders Sodium Chloride (Saline Flush) 10 ml FLUSH ASDIRECTED PRN PRN Reason: Keep Vein Open Last Admin: 05/12/17 17:16 Dose: 10 ml Laboratory Tests 05/12/17 05/12/17 05/12/17 Range/Units 16:49 16:49 17:00 WBC 17.7 H (5.0-10.0) 10^3/uL RBC 4.89 (4.2-5.4) 10^6/uL Hgb 16.5 H (12.0-16.0) g/dL Hct 47.9 H (37.0-47.0) % MCV 98.0 D (80-100) fL MCH 33.7 (27.0-34.0) pg MCHC 34.4 (33.0-35.0) g/dL Plt Count 567 H (150-450) 10^3/uL Neut % (Auto) 72.2 (42.2-75.2) % Lymph % (Auto) 17.1 L (20.5-50.1) % [place] % (Auto) 10.5 H (2-8) % Eos % (Auto) 0.0 L (1.0-3.0) % Baso % (Auto) 0.2 (0.0-1.0) % Sodium (135-145) mmol/L Potassium (3.6-5.0) mmol/L Chloride (101-111) mmol/L Carbon Dioxide (21.0-31.0) mmol/L Anion Gap BUN (7-18) mg/dL Creatinine (0.6-1.3) mg/dL Est Cr Clr Drug Dosing mL/min Estimated GFR (MDRD) BUN/Creatinine Ratio Glucose (74-105) mg/dL Calcium (8.4-10.2) mg/dl Total Bilirubin (0.2-1.0) mg/dL AST (10-42) IU/L ALT (10-60) IU/L Alkaline Phosphatase (42-121) IU/L Total Protein (6.7-8.2) g/dl Albumin (3.2-5.5) g/dl Globulin Albumin/Globulin Ratio Amylase (28-100) U/L Lipase (22-51) U/L Urine Color Yellow (YELLOW) Urine Appearance Slightly cloudy (CLEAR) Urine pH 5.5 (5.0-9.0) Ur Specific [place] 1.020 (1.005-1.030) Urine Protein 30 H (NEGATIVE) Urine Glucose (UA) Negative (NEGATIVE) Urine Ketones 40 H (NEGATIVE) Urine Occult Blood Moderate H (NEGATIVE) Urine Nitrite Negative (NEGATIVE) Urine Bilirubin Large H (NEGATIVE) Urine Urobilinogen 0.2 (0.2-1.0) mg/dL Ur Leukocyte Esterase Negative (NEGATIVE) Urine RBC 10-20 H /HPF Urine WBC 0-5 (0-5/HPF) /HPF Ur Epithelial Cells Moderate H /HPF Amorphous Sediment Few (0/HPF) /HPF Urine Bacteria Few (0-FEW/HPF) /HPF Urine Mucus Few H /LPF Urine Opiates Screen Negative (NEGATIVE) Ur Oxycodone Screen Negative (NEGATIVE) Urine Methadone Screen Negative (NEGATIVE) Ur Barbiturates Screen Negative (NEGATIVE) U Tricyclic Antidepress Negative (NEGATIVE) Ur Phencyclidine Scrn Negative (NEGATIVE) Ur Amphetamine Screen Negative (NEGATIVE) U Methamphetamines Scrn Negative (NEGATIVE) Urine MDMA Screen Negative (NEGATIVE) U Benzodiazepines Scrn Negative (NEGATIVE) Urine Cocaine Screen Negative (NEGATIVE) U Marijuana (THC) Screen Positive H (NEGATIVE) Ethyl Alcohol mg/dL 05/12/17 Range/Units 17:00 WBC (5.0-10.0) 10^3/uL RBC (4.2-5.4) 10^6/uL Hgb (12.0-16.0) g/dL Hct (37.0-47.0) % MCV (80-100) fL MCH (27.0-34.0) pg MCHC (33.0-35.0) g/dL Plt Count (150-450) 10^3/uL Neut % (Auto) (42.2-75.2) % Lymph % (Auto) (20.5-50.1) % [place] % (Auto) (2-8) % Eos % (Auto) (1.0-3.0) % Baso % (Auto) (0.0-1.0) % Sodium 132 L (135-145) mmol/L Potassium 3.2 L (3.6-5.0) mmol/L Chloride 93 L (101-111) mmol/L Carbon Dioxide 22.0 (21.0-31.0) mmol/L Anion Gap 20.2 BUN 21 H (7-18) mg/dL Creatinine 1.1 (0.6-1.3) mg/dL Est Cr Clr Drug Dosing 43.09 mL/min Estimated GFR (MDRD) 51 BUN/Creatinine Ratio 19.09 Glucose 106 H (74-105) mg/dL Calcium 9.7 (8.4-10.2) mg/dl Total Bilirubin 0.7 (0.2-1.0) mg/dL AST 29 (10-42) IU/L ALT 14 (10-60) IU/L Alkaline Phosphatase 87 (42-121) IU/L Total Protein 8.3 H (6.7-8.2) g/dl Albumin 4.8 (3.2-5.5) g/dl Globulin 3.5 Albumin/Globulin Ratio 1.37 Amylase 32 (28-100) U/L Lipase 37 (22-51) U/L Urine Color (YELLOW) Urine Appearance (CLEAR) Urine pH (5.0-9.0) Ur Specific [place] (1.005-1.030) Urine Protein (NEGATIVE) Urine Glucose (UA) (NEGATIVE) Urine Ketones (NEGATIVE) Urine Occult Blood (NEGATIVE) Urine Nitrite (NEGATIVE) Urine Bilirubin (NEGATIVE) Urine Urobilinogen (0.2-1.0) mg/dL Ur Leukocyte Esterase (NEGATIVE) Urine RBC /HPF Urine WBC (0-5/HPF) /HPF Ur Epithelial Cells /HPF Amorphous Sediment (0/HPF) /HPF Urine Bacteria (0-FEW/HPF) /HPF Urine Mucus /LPF Urine Opiates Screen (NEGATIVE) Ur Oxycodone Screen (NEGATIVE) Urine Methadone Screen (NEGATIVE) Ur Barbiturates Screen (NEGATIVE) U Tricyclic Antidepress (NEGATIVE) Ur Phencyclidine Scrn (NEGATIVE) Ur Amphetamine Screen (NEGATIVE) U Methamphetamines Scrn (NEGATIVE) Urine MDMA Screen (NEGATIVE) U Benzodiazepines Scrn (NEGATIVE) Urine Cocaine Screen (NEGATIVE) U Marijuana (THC) Screen (NEGATIVE) Ethyl Alcohol < 5 mg/dL Medications Generic Name Dose Route Start Last Admin Trade Name Freq PRN Reason Stop Dose Admin Sodium Chloride 10 ml 05/12/17 16:48 05/12/17 17:16 Saline Flush FLUSH 10 ml ASDIRECTED PRN Administration Keep Vein Open Discontinued Medications Generic Name Dose Route Start Last Admin Trade Name Freq PRN Reason Stop Dose Admin Dexamethasone 8 mg 05/12/17 17:38 Dexamethasone IVPUSH 05/12/17 17:39 ONETIME ONE Diphenhydramine HCl 25 mg 05/12/17 17:39 Benadryl IVPUSH 05/12/17 17:40 ONETIME ONE Famotidine 20 mg 05/12/17 16:50 05/12/17 17:14 Pepcid IVPUSH 05/12/17 16:51 20 mg ONETIME ONE Administration Lactated Ringer's 1,000 mls @ 999 mls/hr 05/12/17 16:49 05/12/17 17:09 Ringers, Lactated IV 05/12/17 17:49 999 mls/hr .BOLUS ONE Administration Lorazepam 1 mg 05/12/17 17:39 Ativan IVPUSH 05/12/17 17:40 ONETIME ONE Ondansetron HCl 4 mg 05/12/17 16:50 05/12/17 17:15 Zofran IV 05/12/17 16:51 4 mg ONETIME ONE Administration Departure - Departure Time of Disposition: 19:00 Disposition: Home, Self-Care 01 Condition: Fair Clinical Impression: Cannabinoid hyperemesis syndrome, Neuropathic pain - Discharge Information Instructions: Nausea and Vomiting, Adult Forms: ED Department Discharge Additional Instructions: RX: Benadryl 50mg. RX: Reglan 10mg. RX: Omeprazole 20mg. 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 Follow up with Dr. Durant this week in clinic. - My Orders Last 24 Hours: My Active Orders 05/12/17 16:48 Sodium Chloride 0.9% [Saline Flush] 10 ml FLUSH ASDIRECTED PRN 05/12/17 16:49 Peripheral IV Care [RC] . DIRECTED Peripheral IV Insertion Adult [OM.PC] Stat - Assessment/Plan Last 24 Hours: My Active Orders 05/12/17 16:48 Sodium Chloride 0.9% [Saline Flush] 10 ml FLUSH ASDIRECTED PRN 05/12/17 16:49 Peripheral IV Care [RC] . DIRECTED Peripheral IV Insertion Adult [OM.PC] Stat I have read and agree with the documentation that has been completed regarding this visit. By signing this record, I attest that the documentation was completed in my physical presence and is an accurate record of the encounter.
[2017-05-12 18:26] VITALS: BP 105/86
== END 2017-05-12 18:30 | disposition home or self-care (01) ==
LOC: DL.ED 15:53
DX: J66.2 Cannabinosis (principal); R11.10 Vomiting, unspecified; M79.2 Neuralgia and neuritis, unspecified; J45.909 Unspecified asthma, uncomplicated; E78.00 Pure hypercholesterolemia, unspecified; F17.210 Nicotine dependence, cigarettes, uncomplicated; Z88.1 Allergy status to other antibiotic agents; Z88.8 Allergy status to other drugs, medicaments and biological substances; Z79.899 Other long term (current) drug therapy
CPT/HCPCS: 36415; 80053; 80305; 81001; 82150; 83690; 85025; 96361; 96374; 96375; 99284; G0480; J1100; J1200; J2060; J2405; J7050; J7120; S0028

== ENCOUNTER 2017-05-25 12:52 | Emergency (ER) | payer MEDICARE, SELFPAY ==
[2017-05-25 13:22] VITALS: BP 125/95
--- NOTE | 2017-05-25 14:54 | EDM.PDOC ---
ED HPI GENERAL MEDICAL PROBLEM - General Chief Complaint: Upper Extremity Injury/Pain Stated Complaint: REEB PAIN [id number] Time Seen by Provider: 05/25/17 14:41 Source of Information: Reports: Patient, RN, RN Notes Reviewed History Limitations: Reports: No Limitations - History of Present Illness INITIAL COMMENTS - FREE TEXT/NARRATIVE: Pt presents to ER with c/o right rib pain. She states she "strangulated 4 muscles" on the right side rib area. She states she was giving her dog a bath and reached for a bottle of shampoo and strained the muscles. She denies falling or injuring her ribs, she denies the need for an xray. She states she has been taking her fathers tramadol and oxycontin for the pain as well has Extra Strength Tylenol. Patient states she cannot lift her right arm. Onset: Gradual Location: Reports: Chest, Abdomen Quality: Reports: Stabbing, Throbbing Severity: Moderate Improves with: Reports: None Worsens with: Reports: Movement Associated Symptoms: Reports: No Other Symptoms Right Pain Score (Numeric/FACES): 10 - Related Data Allergies Allergy/AdvReac Type Severity Reaction Status Date / Time cefaclor [From Ceclor] Allergy Unknown Shortness Verified 01/30/17 09:20 of Breath celecoxib [From Celebrex] Allergy Unknown UNKNOWN Verified 01/30/17 09:20 ibuprofen Allergy Unknown UNKNOWN Verified 01/30/17 09:20 propoxyphene Allergy Unknown UNKNOWN Verified 01/30/17 09:20 Home Meds: Home Meds Albuterol [IJD: Ventolin HFA] 2 puff INH ASDIRECTED PRN 01/30/17 [History] Azelastine [Astelin Nasal Soln] 2 puff .ROUTE BID 01/30/17 [History] Budesonide/Formoterol [Symbicort 160-4.5 MCG] 2 puff INH BID 01/30/17 [History] Rosuvastatin Calcium 1 tab PO BEDTIME 01/30/17 [History] Venlafaxine HCl [Venlafaxine HCl] 2 tab PO BID 01/30/17 [History] tiZANidine [Zanaflex] 1 tab PO BID 01/30/17 [History] traZODone HCl [Trazodone HCl] 1 tab PO BEDTIME 01/30/17 [History] Gabapentin [Neurontin] 1 cap PO BID 05/06/17 [History] Past Medical History HEENT History: Reports: Impaired Vision Cardiovascular History: Reports: High Cholesterol Respiratory History: Reports: Asthma Gastrointestinal History: Reports: None Genitourinary History: Reports: None 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 Musculoskeletal History: Reports: Other (See Below) Other Musculoskeletal History: chronic nerve pain to the right side of her body , carpal tunnel and back surgery Neurological History: Reports: None Psychiatric History: Reports: Anxiety, Depression Endocrine/Metabolic History: Reports: None Hematologic History: Reports: None Immunologic History: Reports: None Oncologic (Cancer) History: Reports: None Dermatologic History: Reports: None - Infectious Disease History Infectious Disease History: Reports: None - Past Surgical History Head Surgeries/Procedures: Reports: None HEENT Surgical History: Reports: Other (See Below) Other HEENT Surgeries/Procedures: jaw surgery, TMJ, missing numerous teeth GI Surgical History: Reports: Appendectomy, Cholecystectomy, Hernia, Inguinal Other Musculoskeletal Surgeries/Procedures:: carpal tunnel, toe surgery Social & Family History - Family History Family Medical History: Noncontributory - Tobacco Use Smoking Status *Q: Current Every Day Smoker Years of Tobacco use: 38 Packs/Tins Daily: 1 - Caffeine Use Caffeine Use: Reports: Coffee, Soda - Alcohol Use Days Per Week of Alcohol Use: 5 Number of Drinks Per Day: 3 Total Drinks Per Week: 15 - Recreational Drug Use Recreational Drug Use: Yes Drug Use in Last 12 Months: Yes Recreational Drug Type: Reports: Marijuana/Hashish Recreational Drug Use Frequency: Daily Review of Systems - Review of Systems Review Of Systems: ROS reveals no pertinent complaints other than HPI. ED EXAM, GENERAL - Physical Exam Exam: See Below Exam Limited By: No Limitations General Appearance: Alert, WD/WN, Moderate Distress Eye Exam: Bilateral Eye: EOMI, PERRL (3 sluggish) Ears: Normal External Exam, Hearing Grossly Normal Nose: Normal Inspection, Clear Rhinorrhea Throat/Mouth: Normal Inspection, Normal Voice, No Airway Compromise Head: Atraumatic, Normocephalic Neck: Normal Inspection, Supple, Non-Tender, Full Range of Motion Respiratory/Chest: Decreased Breath Sounds, Crackles (bases bilaterally). No: Chest Non-Tender (tenderness to the right ribcage) Cardiovascular: Normal Peripheral Pulses, Regular Rate, Rhythm, No Edema, No Gallop, No JVD, No Murmur, No Rub Peripheral Pulses: 2+: Radial (L), Radial (R) GI/Abdominal: Normal Bowel Sounds, Soft, Non-Tender, No Organomegaly, No Distention, No Abnormal Bruit, No Mass (Female) Exam: Deferred Rectal (Female) Exam: Deferred Back Exam: Normal Inspection, Decreased Range of Motion Extremities: Normal Inspection, No Pedal Edema, Normal Capillary Refill, Limited Range of Motion (right arm) Neurological: Alert, Oriented, No Motor/Sensory Deficits, Other (flight of thoughts) Psychiatric: Anxious, Tearful Skin Exam: Warm, Dry, Intact, Normal Color, No Rash Lymphatic: No Adenopathy Course - Vital Signs Last Recorded V/S: Last Vital Signs Temp 98.0 F 05/25/17 13:18 Pulse 119 H 05/25/17 13:18 Resp 20 05/25/17 13:18 BP 125/95 H 05/25/17 13:18 Pulse Ox 96 05/25/17 13:18 - Orders/Labs/Meds Meds: Medications Discontinued Medications Generic Name Dose Route Start Last Admin Trade Name Beatriz PRN Reason Stop Dose Admin Orphenadrine Citrate 60 mg 05/25/17 15:00 05/25/17 15:02 Norflex IM 60 mg Q12H KANG Administration Departure - Departure Time of Disposition: 14:51 Disposition: Home, Self-Care 01 Condition: Fair Clinical Impression: Muscle strain of chest wall Qualifiers: Encounter type: initial encounter Qualified Code(s): S29.011A - Strain of muscle and tendon of front wall of thorax, initial encounter - Discharge Information Instructions: Muscle Strain, [id number] Referrals: PCP,None [Primary Care Provider] - Forms: ED Department Discharge Additional Instructions: RX: Norflex Follow up with your primary care facility if no improvement.
== END 2017-05-25 15:03 | disposition home or self-care (01) ==
LOC: DL.ED 12:52
DX: S29.011A Strain of muscle and tendon of front wall of thorax, initial encounter (principal); E78.00 Pure hypercholesterolemia, unspecified; F17.210 Nicotine dependence, cigarettes, uncomplicated; Z88.1 Allergy status to other antibiotic agents; Z88.8 Allergy status to other drugs, medicaments and biological substances; Z79.899 Other long term (current) drug therapy; X58.XXXA Exposure to other specified factors, initial encounter
CPT/HCPCS: 96372; 99283; J2360; 99284

== ENCOUNTER 2018-08-25 13:17 | Emergency (ER) | payer MEDICARE ==
[2018-08-25 13:26] VITALS: BP 148/60
[2018-08-25] MEDS ORDERED: Promethazine 25 MG/ML SDV IM ONE (13:38)
--- NOTE | 2018-08-25 13:47 | EDM.PDOC ---
ED HPI GENERAL MEDICAL PROBLEM - General Chief Complaint: General Stated Complaint: NERVE DAMAGE ON RIGHT SIDE OF BODY Time Seen by Provider: 08/25/18 13:30 Source of Information: Reports: Patient History Limitations: Reports: No Limitations - History of Present Illness INITIAL COMMENTS - FREE TEXT/NARRATIVE: This 57 yo female patient reports to the ED with entire right side pain with nausea and vomiting. The patient reports she started to feel ill last week ( 08/20/18). The patient reports she was sick Saturday, and Saturday. The patient reports she started to feel better on Saturday and Saturday. At 0300 this morning, the patient reports she started to have increased pain and nausea again. The patient attempted to speak with her primary care facility , but was not able to contact them. The patient reports she was able to keep down her Tylenol and muscle relaxer today, but did not try to keep anything else down. The patient has an appointment with Dr. Owens on 08/28/18 for an MRI due to her right sided pain. The patient admits to marijuana use (last use was yesterday). 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 Right Shoulder Pain Score (Numeric/FACES): 10 - Related Data Allergies Allergy/AdvReac Type Severity Reaction Status Date / Time cefaclor [From Ceclor] Allergy Unknown Shortness Verified 08/25/18 13:26 of Breath celecoxib [From Celebrex] Allergy Unknown UNKNOWN Verified 08/25/18 13:26 ibuprofen Allergy Unknown UNKNOWN Verified 08/25/18 13:26 propoxyphene Allergy Unknown UNKNOWN Verified 08/25/18 13:26 Home Meds: Home Meds Albuterol [IJD: Ventolin HFA] 2 puff INH ASDIRECTED PRN 01/30/17 [History] Azelastine [Astelin Nasal Soln] 2 puff .ROUTE BID 01/30/17 [History] Budesonide/Formoterol [Symbicort 160-4.5 MCG] 2 puff INH BID 01/30/17 [History] Rosuvastatin Calcium 1 tab PO BEDTIME 01/30/17 [History] Venlafaxine HCl 1 tab PO BID 01/30/17 [History] tiZANidine [Zanaflex] 1 tab PO BID 01/30/17 [History] traZODone HCl [Trazodone HCl] 1 tab PO BEDTIME 01/30/17 [History] Gabapentin [Neurontin] 2 cap PO QID 05/06/17 [History] Amoxicillin 500 mg PO QID 05/31/18 [History] Aspirin [Halfprin] 81 mg PO DAILY 05/31/18 [History] Nortriptyline 50 mg PO BEDTIME 05/31/18 [History] Omeprazole 20 mg PO DAILY 05/31/18 [History] Ondansetron [Zofran ODT] 4 mg PO Q6H PRN 05/31/18 [History] Ondansetron [Zofran] 4 mg PO Q6HR PRN 05/31/18 [History] Past Medical History HEENT History: Reports: Impaired Vision Cardiovascular History: Reports: High Cholesterol Respiratory History: Reports: Asthma Gastrointestinal History: Reports: None Genitourinary History: Reports: None 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 Musculoskeletal History: Reports: Other (See Below) Other Musculoskeletal History: chronic nerve pain to the right side of her body , carpal tunnel and back surgery Neurological History: Reports: None Psychiatric History: Reports: Anxiety, Depression Endocrine/Metabolic History: Reports: None Hematologic History: Reports: None Immunologic History: Reports: None Oncologic (Cancer) History: Reports: None Dermatologic History: Reports: None - Infectious Disease History Infectious Disease History: Reports: None - Past Surgical History Head Surgeries/Procedures: Reports: None HEENT Surgical History: Reports: Other (See Below) Other HEENT Surgeries/Procedures: jaw surgery, TMJ, missing numerous teeth GI Surgical History: Reports: Appendectomy, Cholecystectomy, Hernia, Inguinal Other Musculoskeletal Surgeries/Procedures:: carpal tunnel, toe surgery Social & Family History - Family History Family Medical History: Noncontributory - Tobacco Use Smoking Status *Q: Former Smoker Used Tobacco, but Quit: Yes Month/Year Tobacco Last Used: ? - Caffeine Use Caffeine Use: Reports: Coffee - Recreational Drug Use Recreational Drug Use: Yes Drug Use in Last 12 Months: Yes Recreational Drug Type: Reports: Marijuana/Hashish ED ROS GENERAL - Review of Systems Review Of Systems: ROS reveals no pertinent complaints other than HPI. ED EXAM, GENERAL - Physical Exam Exam: See Below Exam Limited By: No Limitations General Appearance: Alert, WD/WN, Moderate Distress Eye Exam: Bilateral Eye: EOMI, Normal Inspection, PERRL Ears: Normal External Exam, Normal Canal, Hearing Grossly Normal, Normal TMs Nose: Normal Inspection, Normal Mucosa, No Blood Throat/Mouth: Normal Inspection, Normal Lips, Normal Teeth, Normal Gums, Normal Oropharynx, Normal Voice, No Airway Compromise Head: Atraumatic, Normocephalic Neck: Normal Inspection, Supple, Non-Tender, Full Range of Motion Respiratory/Chest: No Respiratory Distress, Lungs Clear, Normal Breath Sounds, No Accessory Muscle Use, Chest Non-Tender Cardiovascular: Normal Peripheral Pulses, Regular Rate, Rhythm, No Edema, No Gallop, No JVD, No Murmur, No Rub GI/Abdominal: Normal Bowel Sounds, Soft, Non-Tender, No Organomegaly, No Distention, No Abnormal Bruit, No Mass (Female) Exam: Deferred Rectal (Female) Exam: Deferred Back Exam: Normal Inspection, Full Range of Motion, NT Extremities: Normal Inspection, Normal Range of Motion, Non-Tender, Normal Capillary Refill, No Pedal Edema Neurological: Alert, Oriented, CN II-XII Intact, Normal Cognition, Normal Gait, Normal Reflexes, No Motor/Sensory Deficits Psychiatric: Anxious, Flat Affect Skin Exam: Warm, Dry, Intact, Normal Color, No Rash Lymphatic: No Adenopathy Course - Vital Signs Last Recorded V/S: Last Vital Signs Temp 35.3 C 08/25/18 13:22 Pulse 84 08/25/18 13:22 Resp 18 08/25/18 13:22 BP 148/60 H 08/25/18 13:22 Pulse Ox 100 08/25/18 13:22 - Orders/Labs/Meds Orders: Active Orders 24 hr Category Date Time Status CULTURE BLOOD [BC] Stat Lab 08/25/18 14:06 Ordered CULTURE BLOOD [BC] Stat Lab 08/25/18 14:06 Ordered INFLUENZA A+B AG SCREEN [RM] Stat Lab 08/25/18 14:05 Ordered Blood Culture x2 Reflex Set [OM.PC] Stat Oth 08/25/18 14:06 Ordered Labs: Laboratory Tests 08/25/18 08/25/18 08/25/18 Range/Units 13:40 13:40 13:43 WBC 19.8 H (5.0-10.0) 10^3/uL RBC 4.71 (4.2-5.4) 10^6/uL Hgb 16.2 H D (12.0-16.0) g/dL Hct 47.3 H (37.0-47.0) % MCV 100.4 H (80-100) fL MCH 34.4 H (27.0-34.0) pg MCHC 34.2 (33.0-35.0) g/dL Plt Count 532 H (150-450) 10^3/uL Neut % (Auto) 89.0 H (42.2-75.2) % Lymph % (Auto) 7.0 L (20.5-50.1) % [place] % (Auto) 3.8 (2-8) % Eos % (Auto) 0.0 L (1.0-3.0) % Baso % (Auto) 0.2 (0.0-1.0) % Sodium (135-145) mmol/L Potassium (3.6-5.0) mmol/L Chloride (101-111) mmol/L Carbon Dioxide (21.0-31.0) mmol/L Anion Gap BUN (7-18) mg/dL Creatinine (0.6-1.3) mg/dL Est Cr Clr Drug Dosing mL/min Estimated GFR (MDRD) BUN/Creatinine Ratio Glucose (74-105) mg/dL Lactic Acid (0.5-2.2) mmol/L Calcium (8.4-10.2) mg/dl Total Bilirubin (0.2-1.0) mg/dL AST (10-42) IU/L ALT (10-60) IU/L Alkaline Phosphatase (42-121) IU/L Total Protein (6.7-8.2) g/dl Albumin (3.2-5.5) g/dl Globulin Albumin/Globulin Ratio Urine Color Yellow (YELLOW) Urine Appearance Clear (CLEAR) Urine pH 8.5 (5.0-9.0) Ur Specific [place] 1.010 (1.005-1.030) Urine Protein 100 H (NEGATIVE) Urine Glucose (UA) Negative (NEGATIVE) Urine Ketones 15 H (NEGATIVE) Urine Occult Blood Negative (NEGATIVE) Urine Nitrite Negative (NEGATIVE) Urine Bilirubin Negative (NEGATIVE) Urine Urobilinogen 0.2 (0.2-1.0) mg/dL Ur Leukocyte Esterase Negative (NEGATIVE) Urine RBC 5-10 H /HPF Urine WBC 0-5 (0-5/HPF) /HPF Ur Epithelial Cells Many H /HPF Urine Bacteria Few (0-FEW/HPF) /HPF Urine Mucus Moderate H /LPF Urine Opiates Screen Negative (NEGATIVE) Ur Oxycodone Screen Negative (NEGATIVE) Urine Methadone Screen Negative (NEGATIVE) Ur Barbiturates Screen Negative (NEGATIVE) U Tricyclic Antidepress Negative (NEGATIVE) Ur Phencyclidine Scrn Negative (NEGATIVE) Ur Amphetamine Screen Negative (NEGATIVE) U Methamphetamines Scrn Negative (NEGATIVE) Urine MDMA Screen Negative (NEGATIVE) U Benzodiazepines Scrn Negative (NEGATIVE) Urine Cocaine Screen Negative (NEGATIVE) U Marijuana (THC) Screen Positive H (NEGATIVE) 08/25/18 08/25/18 Range/Units 13:43 14:16 WBC (5.0-10.0) 10^3/uL RBC (4.2-5.4) 10^6/uL Hgb (12.0-16.0) g/dL Hct (37.0-47.0) % MCV (80-100) fL MCH (27.0-34.0) pg MCHC (33.0-35.0) g/dL Plt Count (150-450) 10^3/uL Neut % (Auto) (42.2-75.2) % Lymph % (Auto) (20.5-50.1) % [place] % (Auto) (2-8) % Eos % (Auto) (1.0-3.0) % Baso % (Auto) (0.0-1.0) % Sodium 134 L (135-145) mmol/L Potassium 3.6 (3.6-5.0) mmol/L Chloride 98 L (101-111) mmol/L Carbon Dioxide 21.0 (21.0-31.0) mmol/L Anion Gap 18.6 BUN 11 (7-18) mg/dL Creatinine 0.9 (0.6-1.3) mg/dL Est Cr Clr Drug Dosing 64.56 mL/min Estimated GFR (MDRD) > 60 BUN/Creatinine Ratio 12.22 Glucose 135 H (74-105) mg/dL Lactic Acid 2.3 H (0.5-2.2) mmol/L Calcium 9.8 (8.4-10.2) mg/dl Total Bilirubin 1.1 H (0.2-1.0) mg/dL AST 29 (10-42) IU/L ALT 18 (10-60) IU/L Alkaline Phosphatase 79 (42-121) IU/L Total Protein 7.8 (6.7-8.2) g/dl Albumin 4.7 (3.2-5.5) g/dl Globulin 3.1 Albumin/Globulin Ratio 1.52 Urine Color (YELLOW) Urine Appearance (CLEAR) Urine pH (5.0-9.0) Ur Specific [place] (1.005-1.030) Urine Protein (NEGATIVE) Urine Glucose (UA) (NEGATIVE) Urine Ketones (NEGATIVE) Urine Occult Blood (NEGATIVE) Urine Nitrite (NEGATIVE) Urine Bilirubin (NEGATIVE) Urine Urobilinogen (0.2-1.0) mg/dL Ur Leukocyte Esterase (NEGATIVE) Urine RBC /HPF Urine WBC (0-5/HPF) /HPF Ur Epithelial Cells /HPF Urine Bacteria (0-FEW/HPF) /HPF Urine Mucus /LPF Urine Opiates Screen (NEGATIVE) Ur Oxycodone Screen (NEGATIVE) Urine Methadone Screen (NEGATIVE) Ur Barbiturates Screen (NEGATIVE) U Tricyclic Antidepress (NEGATIVE) Ur Phencyclidine Scrn (NEGATIVE) Ur Amphetamine Screen (NEGATIVE) U Methamphetamines Scrn (NEGATIVE) Urine MDMA Screen (NEGATIVE) U Benzodiazepines Scrn (NEGATIVE) Urine Cocaine Screen (NEGATIVE) U Marijuana (THC) Screen (NEGATIVE) Meds: Medications Discontinued Medications Generic Name Dose Route Start Last Admin Trade Name Freq PRN Reason Stop Dose Admin Hydromorphone HCl 1 mg 08/25/18 14:10 08/25/18 14:19 Dilaudid IVPUSH 08/25/18 14:11 1 mg ONETIME ONE Administration Sodium Chloride 1,000 mls @ 999 mls/hr 08/25/18 14:03 08/25/18 14:19 Normal Saline IV 08/25/18 15:03 999 mls/hr .BOLUS ONE Administration Promethazine HCl 50 mg 08/25/18 13:38 08/25/18 13:42 Phenergan IM 08/25/18 13:39 50 mg ONETIME ONE Administration Departure - Departure Time of Disposition: 15:15 Disposition: Home, Self-Care 01 Condition: Fair Clinical Impression: Neuropathic pain, Gastroenteritis Chronic pain Qualifiers: Chronic pain type: other chronic pain Qualified Code(s): G89.29 - Other chronic pain - Discharge Information *PRESCRIPTION DRUG MONITORING PROGRAM REVIEWED*: Not Applicable *COPY OF PRESCRIPTION DRUG MONITORING REPORT IN PATIENT BENITA: Not Applicable Instructions: Viral Gastroenteritis, Adult, [id number], Acute Pain, Adult Forms: ED Department Discharge Care Plan Goals: The patient was advised of the examination and lab results during the visit. The patient was given a liter of IV fluid, IV Dilaudid and IM Phenergan while in the ED. The patient was encouraged to take her medications as prescribed. The patient should follow-up with her primary care facility. If the patient has any additional symptoms or concerns, the patient should either return to the emergency department or visit her primary care facility. - My Orders Last 24 Hours: My Active Orders 08/25/18 14:05 INFLUENZA A+B AG SCREEN [RM] Stat 08/25/18 14:06 CULTURE BLOOD [BC] Stat CULTURE BLOOD [BC] Stat Blood Culture x2 Reflex Set [OM.PC] Stat - Assessment/Plan Last 24 Hours: My Active Orders 08/25/18 14:05 INFLUENZA A+B AG SCREEN [RM] Stat 08/25/18 14:06 CULTURE BLOOD [BC] Stat CULTURE BLOOD [BC] Stat Blood Culture x2 Reflex Set [OM.PC] Stat
[2018-08-25] MEDS ORDERED: Sodium Chloride 0.9% 1,000 ML IV ONE (14:03)
[2018-08-25 14:10] LABS: ANION GAP 18.6; CHLORIDE,CL 98 mmol/L (101-111); SODIUM,NA 134 mmol/L (135-145)
[2018-08-25] MEDS ORDERED: HYDROmorphone 1 MG/ML Syringe IVPUSH ONE (14:10)
== END 2018-08-25 15:24 | disposition home or self-care (01) ==
LOC: DL.ED 13:17
DX: K52.9 Noninfective gastroenteritis and colitis, unspecified (principal); G89.29 Other chronic pain; M79.2 Neuralgia and neuritis, unspecified; Z88.8 Allergy status to other drugs, medicaments and biological substances; Z79.82 Long term (current) use of aspirin; Z79.899 Other long term (current) drug therapy; Z87.891 Personal history of nicotine dependence
CPT/HCPCS: 36415; 80053; 80305; 81001; 83605; 85025; 87040; 87804; 96361; 96372; 96374; 99284; J1170; J2550; J7030

== ENCOUNTER 2022-04-11 06:50 | Day surgery (SDC) | payer MEDICARE ==
[2022-04-11] MEDS ORDERED: Sodium Chloride 0.9% 10 ML Syringe IV ONE (06:51)
[2022-04-11] MEDS ORDERED: Midazolam 1 MG/ML 2 ML SDV IV ONE (06:51)
[2022-04-11] MEDS ORDERED: Dexamethasone 4 MG/ML SDV IV ONE (06:51)
[2022-04-11] MEDS ORDERED: Timolol Maleate 0.5% Ophth Soln 5 ML Bottle EYERT ONE (07:00)
[2022-04-11] MEDS ORDERED: Povidone-Iodine 5% Sterile Ophth Soln 30 ML Bottle EYERT ONE ×2 (07:00→08:15)
[2022-04-11] MEDS ORDERED: Ondansetron 4 MG/2 ML SDV IVPUSH PRN (07:00)
[2022-04-11] MEDS ORDERED: Cataract Ophth Solution EYERT ONE (07:00)
[2022-04-11] MEDS ORDERED: Acetaminophen/Codeine 300-30 MG Tab PO PRN (07:00)
[2022-04-11] MEDS ORDERED: Tropicamide 1% Ophth Soln 15 ML Bottle EYERT ONE (07:00)
[2022-04-11] MEDS ORDERED: Moxifloxacin 0.5% Ophth Soln 3 ML Bottle EYERT ONE (07:00)
[2022-04-11] MEDS ORDERED: Sodium Chloride 0.9% 10 ML Syringe FLUSH PRN (07:00)
[2022-04-11] MEDS ORDERED: Acetaminophen 325 MG Tab PO PRN (07:00)
[2022-04-11] MEDS ORDERED: Phenylephrine 10% Ophth Soln 5 ML Bot EYERT PRN (07:00)
[2022-04-11] MEDS ORDERED: Proparacaine 0.5% Ophth Soln 15 ML Bottle EYERT ONE ×2 (07:00→08:14)
[2022-04-11] MEDS ORDERED: Lidocaine 1% 30 ML SDV ONE (08:18)
[2022-04-11] MEDS ORDERED: Chondroitin Sulfate/Hyaluronate Sodium Ophth Inj 0.75 ML Syringe EYERT ONE (08:19)
[2022-04-11] MEDS ORDERED: Balanced Salt Solution Ophth Irrig 500 ML Bottle IOCULAR ONE (08:20)
[2022-04-11] MEDS ORDERED: Vancomycin 500 MG SDV EYERT ONE (08:24)
[2022-04-11] MEDS ORDERED: Apraclonidine 0.5% Ophth Soln 5 ML Bot EYERT ONE (08:27)
[2022-04-11] MEDS ORDERED: Diclofenac Sodium 0.1% Ophth Soln 5 ML Bottle EYERT ONE (08:28)
[2022-04-11] MEDS ORDERED: Dexamethasone/Neomycin/Polymyxin B Ophth Oint 3.5 GM Tube EYERT ONE (08:29)
[2022-04-11 12:40] VITALS: BP 154/61; PULSE 74
== END 2022-04-11 09:10 | disposition home or self-care (01) ==
LOC: DL.SDS 06:50
PROVIDERS: ATTEND Ophthalmology
DX: H25.811 Combined forms of age-related cataract, right eye (principal); F41.9 Anxiety disorder, unspecified; J44.9 Chronic obstructive pulmonary disease, unspecified; F32.A Depression, unspecified; M81.0 Age-related osteoporosis without current pathological fracture; F17.210 Nicotine dependence, cigarettes, uncomplicated; Z90.49 Acquired absence of other specified parts of digestive tract; Z98.890 Other specified postprocedural states; Z88.8 Allergy status to other drugs, medicaments and biological substances; Z79.899 Other long term (current) drug therapy
CPT/HCPCS: 66984; A9270; J1100; J2250; J3370; J3490; 00142; V2632

== ENCOUNTER 2022-04-25 06:53 | Day surgery (SDC) | payer MEDICARE ==
[2022-04-25] MEDS ORDERED: Dexamethasone 4 MG/ML SDV IV ONE (06:54)
[2022-04-25] MEDS ORDERED: Midazolam 1 MG/ML 2 ML SDV IV ONE (06:54)
[2022-04-25] MEDS ORDERED: Sodium Chloride 0.9% 10 ML Syringe IV ONE (06:54)
[2022-04-25] MEDS ORDERED: Ondansetron 4 MG/2 ML SDV IVPUSH PRN (07:00)
[2022-04-25] MEDS ORDERED: Acetaminophen 325 MG Tab PO PRN (07:00)
[2022-04-25] MEDS ORDERED: Acetaminophen/Codeine 300-30 MG Tab PO PRN (07:00)
[2022-04-25] MEDS ORDERED: Cataract Ophth Solution EYELF ONE (07:00)
[2022-04-25] MEDS: Proparacaine 0.5% Ophth Soln 15 ML Bottle EYELF ONE ×3 (07:24→08:36)
[2022-04-25] MEDS: Povidone-Iodine 5% Sterile Ophth Soln 30 ML Bottle EYELF ONE ×3 (07:25→08:36)
[2022-04-25] MEDS: Apraclonidine 0.5% Ophth Soln 5 ML Bot EYELF ONE (07:26)
[2022-04-25] MEDS: Moxifloxacin 0.5% Ophth Soln 3 ML Bottle EYELF ONE (07:26)
[2022-04-25] MEDS: Tropicamide 1% Ophth Soln 15 ML Bottle EYELF ONE (07:27)
[2022-04-25] MEDS: Diclofenac Sodium 0.1% Ophth Soln 5 ML Bottle EYELF ONE ×2 (07:27→08:37)
[2022-04-25] MEDS: Timolol Maleate 0.5% Ophth Soln 5 ML Bottle EYELF ONE (07:28)
[2022-04-25] MEDS: Dexamethasone/Neomycin/Polymyxin B Ophth Oint 3.5 GM Tube EYELF ONE ×2 (07:28→08:37)
[2022-04-25] MEDS: Lidocaine 1% 30 ML SDV ONE (07:28)
[2022-04-25] MEDS: Phenylephrine 10% Ophth Soln 5 ML Bot EYELF PRN (07:28)
[2022-04-25] MEDS: Vancomycin 500 MG SDV EYELF ONE ×2 (07:29→08:38)
[2022-04-25] MEDS: Chondroitin Sulfate/Hyaluronate Sodium Ophth Inj 0.75 ML Syringe EYELF ONE ×2 (07:29→08:39)
[2022-04-25] MEDS: Balanced Salt Solution Ophth Irrig 500 ML Bottle IOCULAR ONE ×2 (07:29→08:38)
[2022-04-25] MEDS: Sodium Chloride 0.9% 10 ML Syringe FLUSH PRN (07:36)
[2022-04-25 09:45] VITALS: BP 114/71; PULSE 85
== END 2022-04-25 09:02 | disposition home or self-care (01) ==
LOC: DL.SDS 06:53
PROVIDERS: ATTEND Ophthalmology
DX: H25.812 Combined forms of age-related cataract, left eye (principal); F41.9 Anxiety disorder, unspecified; F32.A Depression, unspecified; M81.0 Age-related osteoporosis without current pathological fracture; J44.9 Chronic obstructive pulmonary disease, unspecified; F17.210 Nicotine dependence, cigarettes, uncomplicated; Z88.6 Allergy status to analgesic agent; Z79.899 Other long term (current) drug therapy; Z88.1 Allergy status to other antibiotic agents; Z90.49 Acquired absence of other specified parts of digestive tract; Z98.890 Other specified postprocedural states
CPT/HCPCS: 00142; A9270-GY; J1100; J2250; J3370; J3490; V2632

== ENCOUNTER 2023-03-09 15:55 | Inpatient (IN) | payer MEDICARE, MEDICAID ==
[2023-03-09] MEDS ORDERED: Ondansetron 4 MG/2 ML SDV IVPUSH PRN (18:54)
[2023-03-09] MEDS ORDERED: Albuterol/Ipratropium 3.0-0.5 MG/3 ML Neb Soln NEB PRN (18:54)
[2023-03-09] MEDS ORDERED: Polyethylene Glycol 3350 Powder 17 GM Packet PO PRN (18:54)
[2023-03-09] MEDS ORDERED: Sodium Chloride 0.9% 10 ML Syringe FLUSH PRN (18:54)
[2023-03-09] MEDS ORDERED: Sennosides/Docusate Sodium 50-8.6 MG Tab PO PRN (18:54)
[2023-03-09] MEDS ORDERED: Acetaminophen 325 MG Tab PO PRN (18:54)
[2023-03-09] MEDS ORDERED: Magnesium Hydroxide 400 MG/5 ML Susp 30 ML Cup PO PRN (18:54)
[2023-03-09] MEDS ORDERED: fentaNYL 100 MCG/2 ML SDV IVPUSH ONE (19:17)
[2023-03-09] MEDS ORDERED: Naloxone 2 MG/2 ML Syringe IVPUSH PRN (19:17)
[2023-03-09] MEDS ORDERED: LORazepam 2 MG/ML SDV IVPUSH STA (19:18)
[2023-03-09] MEDS ORDERED: Flumazenil 0.1 MG/ML 5 ML MDV IVPUSH PRN (19:18)
[2023-03-09] MEDS: Acetaminophen/oxyCODONE 325-5 MG Tab PO PRN (19:30)
[2023-03-09] MEDS ORDERED: traZODone 50 MG Tab PO ONE ×2 (19:46→21:00)
[2023-03-09 20:11] LABS: A/G RATIO 1.5; ALANINE AMINOTRANSFERASE,ALT 25 U/L (14-59); ALBUMIN 4.1 g/dL (3.4-5.0); ALKALINE PHOSPHATASE 73 U/L (46-116); ANION GAP 16.1 mEq/L (7-13); ASPARTATE AMNIOTRANSFERASE,AST 23 U/L (15-37); BILIRUBIN TOTAL 0.6 mg/dL (0.2-1.0); BLOOD UREA NITROGEN,BUN 10 mg/dL (7-18); BUN/CREATININE RATIO 9.3 (No establ ref range); CALCIUM 9.5 mg/dL (8.5-10.1); CARBON DIOXIDE,CO2 26 mmol/L (21-32); CHLORIDE,CL 100 mmol/L (98-107); CREATININE 1.07 mg/dL (0.55-1.02); EST CRCL DRUG DOSING (CG) 51.03 mL/min; GLUCOSE RANDOM 105 mg/dL (70-99); MAGNESIUM 1.7 mg/dL (1.8-2.4); POTASSIUM,K 4.1 mmol/L (3.5-5.1); PROTEIN TOTAL,TP 6.8 g/dL (6.4-8.2); SODIUM,NA 138 mmol/L (136-145)
[2023-03-09 20:14] LABS: ESTIMATED GFR 59 mL/min (>=60); ETHANOL BLOOD MEDICAL < 3 mg/dL (0)
[2023-03-09 20:18] LABS: BASOPHILS PERCENT AUTO 0.4 % (0.0-1.0); EOSINOPHILS PERCENT AUTO 0.3 % (1.0-3.0); HEMATOCRIT 38.2 % (37.0-47.0); HEMOGLOBIN 12.8 g/dL (12.0-16.0); LYMPHOCYTES PERCENT AUTO 15.5 % (20.5-50.1); MEAN CORPUSCULAR HEMOGLOBIN 35.3 pg (27.0-34.0); MEAN CORPUSCULAR HGB CONC 33.5 g/dL (33.0-35.0); MEAN CORPUSCULAR VOLUME 105.2 fL (80-100); MONOCYTES PERCENT AUTO 9.5 % (2-8); NEUTROPHILS PERCENT AUTO 74.3 % (42.2-75.2); PLATELET COUNT,PLT 441 10^3/uL (150-450); RED BLOOD CELL COUNT 3.63 10^6/uL (4.2-5.4); WHITE BLOOD CELL COUNT,WBC 15.7 10^3/uL (5.0-10.0)
[2023-03-09] MEDS ORDERED: Magnesium Sulfate/Water 2 GM in Premix Bag 1 BAG IV ONE (20:46)
[2023-03-09] MEDS ORDERED: Sodium Chloride 0.9% 1,000 ML IV SCH (21:00)
[2023-03-09] MEDS: Sodium Chloride 0.9% 10 ML Syringe FLUSH SCH (21:20)
[2023-03-09] MEDS: HYDROmorphone 0.5 MG/0.5 ML Syringe IVPUSH PRN ×2 (21:54→23:52)
[2023-03-09 22:36] LABS: APPEARANCE,URINE CLEAR (CLEAR); BILIRUBIN,URINE NEGATIVE (NEGATIVE); COLOR,URINE YELLOW (YELLOW); GLUCOSE,URINE NEGATIVE (NEGATIVE); KETONES,URINE NEGATIVE (NEGATIVE); LEUKOCYTE ESTERASE,URINE NEGATIVE (NEGATIVE); NITRITE,URINE NEGATIVE (NEGATIVE); OCCULT BLOOD,URINE NEGATIVE (NEGATIVE); PROTEIN,URINE NEGATIVE (NEGATIVE); UROBILINOGEN,URINE 0.2 mg/dL (0.2-1.0)
[2023-03-09 22:38] LABS: METHAMPHETAMINES,URINE NEGATIVE (NEGATIVE); OXYCODONE,URINE POSITIVE (NEGATIVE); PHENCYCLIDINE,URINE POSITIVE (NEGATIVE)
[2023-03-09 22:39] LABS: AMPHETAMINES,URINE NEGATIVE (NEGATIVE); BARBITURATES,URINE NEGATIVE (NEGATIVE); BENZODIAZEPINE,URINE NEGATIVE (NEGATIVE); MDMA (ECSTASY), URINE NEGATIVE (NEGATIVE); METHADONE,URINE NEGATIVE (NEGATIVE); OPIATES,URINE NEGATIVE (NEGATIVE); TCA,URINE NEGATIVE (NEGATIVE)
[2023-03-09 22:46] LABS: BACTERIA,URINE FEW /HPF (0-FEW/HPF); EPITHELIAL CELLS,URINE FEW /HPF (NOT SEEN); RBC,URINE 0-5 /HPF (0-5); WBC,URINE 0-5 /HPF (0-5/HPF)
[2023-03-10] MEDS: HYDROmorphone 0.5 MG/0.5 ML Syringe IVPUSH PRN ×4 (01:56→08:11)
[2023-03-10 06:09] LABS: BASOPHILS PERCENT AUTO 0.4 % (0.0-1.0); EOSINOPHILS PERCENT AUTO 0.3 % (1.0-3.0); HEMATOCRIT 35.7 % (37.0-47.0); HEMOGLOBIN 11.7 g/dL (12.0-16.0); LYMPHOCYTES PERCENT AUTO 19.6 % (20.5-50.1); MEAN CORPUSCULAR HEMOGLOBIN 34.9 pg (27.0-34.0); MEAN CORPUSCULAR HGB CONC 32.8 g/dL (33.0-35.0); MEAN CORPUSCULAR VOLUME 106.6 fL (80-100); MONOCYTES PERCENT AUTO 13.5 % (2-8); NEUTROPHILS PERCENT AUTO 66.2 % (42.2-75.2); PLATELET COUNT,PLT 394 10^3/uL (150-450); RED BLOOD CELL COUNT 3.35 10^6/uL (4.2-5.4)
[2023-03-10 06:29] LABS: A/G RATIO 1.1; ALBUMIN 3.4 g/dL (3.4-5.0); ANION GAP 15.7 mEq/L (7-13); BILIRUBIN TOTAL 0.6 mg/dL (0.2-1.0); BUN/CREATININE RATIO 9.2 (No establ ref range); CALCIUM 8.7 mg/dL (8.5-10.1); CREATININE 0.98 mg/dL (0.55-1.02); EST CRCL DRUG DOSING (CG) 55.72 mL/min; MAGNESIUM 2.2 mg/dL (1.8-2.4); POTASSIUM,K 3.7 mmol/L (3.5-5.1); PROTEIN TOTAL,TP 6.4 g/dL (6.4-8.2)
[2023-03-10] MEDS: HYDROmorphone 1 MG/ML Syringe IVPUSH PRN ×6 (09:29→23:13)
[2023-03-10] MEDS: Enoxaparin 40 MG/0.4 ML Syringe SUBCUT SCH (11:55)
[2023-03-10] MEDS: Acetaminophen/oxyCODONE 325-5 MG Tab PO PRN ×2 (11:57→16:02)
[2023-03-10] MEDS: Sodium Chloride 0.9% 10 ML Syringe FLUSH SCH ×2 (12:01→22:15)
[2023-03-10] MEDS ORDERED: Albuterol 6.7 GM Inhaler INH PRN (12:11)
[2023-03-10] MEDS: traZODone 50 MG Tab PO SCH (20:46)
[2023-03-10] MEDS: Venlafaxine 150 MG Cap.ER PO SCH (20:46)
[2023-03-10] MEDS: Rosuvastatin 10 MG Tab PO SCH (20:46)
[2023-03-10] MEDS ORDERED: BUDESONIDE INH SCH (21:00)
[2023-03-10] MEDS ORDERED: FORMOTEROL INH SCH (21:00)
[2023-03-10] MEDS ORDERED: [UNRECOGNIZED DRUG - OTHER] INH SCH (21:00)
[2023-03-10] MEDS: Formoterol/Mometasone 200-5 MCG 8.8 GM Inhaler IH SCH (22:41)
[2023-03-11] MEDS: diphenhydrAMINE 25 MG Tab PO PRN ×2 (00:19→20:44)
[2023-03-11] MEDS: HYDROmorphone 1 MG/ML Syringe IVPUSH PRN ×9 (01:18→22:52)
[2023-03-11] MEDS: Omeprazole 20 MG Cap.CR PO SCH (05:26)
[2023-03-11] MEDS: Formoterol/Mometasone 200-5 MCG 8.8 GM Inhaler IH SCH ×2 (06:10→17:57)
[2023-03-11] MEDS: Venlafaxine 150 MG Cap.ER PO SCH ×2 (09:59→20:43)
[2023-03-11] MEDS: buPROPion 150 MG Tab.ER PO SCH (09:59)
[2023-03-11] MEDS: Acetaminophen/oxyCODONE 325-5 MG Tab PO PRN ×3 (09:59→19:45)
[2023-03-11] MEDS: Enoxaparin 40 MG/0.4 ML Syringe SUBCUT SCH (10:01)
[2023-03-11] MEDS: Sodium Chloride 0.9% 10 ML Syringe FLUSH SCH ×2 (10:02→22:43)
[2023-03-11] MEDS ORDERED: traZODone 50 MG Tab PO PRN (16:22)
[2023-03-11] MEDS: traZODone 50 MG Tab PO SCH (20:43)
[2023-03-11] MEDS: Rosuvastatin 10 MG Tab PO SCH (20:43)
[2023-03-12] MEDS: Acetaminophen/oxyCODONE 325-5 MG Tab PO PRN ×4 (01:06→14:31)
[2023-03-12] MEDS: HYDROmorphone 2 MG/ML Syringe IVPUSH PRN ×4 (02:40→14:30)
[2023-03-12] MEDS: Omeprazole 20 MG Cap.CR PO SCH (06:07)
[2023-03-12] MEDS: Formoterol/Mometasone 200-5 MCG 8.8 GM Inhaler IH SCH (06:32)
[2023-03-12] MEDS: Venlafaxine 150 MG Cap.ER PO SCH (08:30)
[2023-03-12] MEDS: Enoxaparin 40 MG/0.4 ML Syringe SUBCUT SCH (08:30)
[2023-03-12] MEDS: buPROPion 150 MG Tab.ER PO SCH (08:30)
[2023-03-12] MEDS: Sodium Chloride 0.9% 10 ML Syringe FLUSH SCH (08:32)
[2023-03-12] MEDS ORDERED: Sennosides/Docusate Sodium 50-8.6 MG Tab PO SCH (09:30)
[2023-03-12 14:32] VITALS: BP 111/64; PULSE 83
== END 2023-03-12 14:53 | DRG 536 ==
LOC: DL.ED 15:55 → DL.MS 18:09 → DL.ED 18:24
PROVIDERS: ADMIT Internal Medicine; ATTEND Internal Medicine
PROC: 0T9B70Z Drainage of Bladder with Drainage Device, Via Natural or Artificial Opening (ICD-10-PCS; principal; 2023-03-09)
DX: S72.115A Nondisplaced fracture of greater trochanter of left femur, initial encounter for closed fracture (principal); S52.502A Unspecified fracture of the lower end of left radius, initial encounter for closed fracture; S52.615A Nondisplaced fracture of left ulna styloid process, initial encounter for closed fracture; J44.9 Chronic obstructive pulmonary disease, unspecified; E78.00 Pure hypercholesterolemia, unspecified; M19.90 Unspecified osteoarthritis, unspecified site; M54.9 Dorsalgia, unspecified; G89.29 Other chronic pain; F41.9 Anxiety disorder, unspecified; F32.A Depression, unspecified; K21.9 Gastro-esophageal reflux disease without esophagitis; G62.9 Polyneuropathy, unspecified; Z88.8 Allergy status to other drugs, medicaments and biological substances; Z79.899 Other long term (current) drug therapy; Z98.49 Cataract extraction status, unspecified eye; Z98.890 Other specified postprocedural states; Z90.49 Acquired absence of other specified parts of digestive tract; W18.30XA Fall on same level, unspecified, initial encounter; W01.0XXA Fall on same level from slipping, tripping and stumbling without subsequent striking against object, initial encounter
CPT/HCPCS: 36415; 51702; 73100-LT; 73700-LT; 80053; 80305-QW; 80307; 81001; 82306; 83735; 85025; 97116-GP; 97161-GP; 97165-GO; 97530-GO; 99223; 99232; 99239; 99282; 99285; A9270-GY; J1170; J1650; J3010; J3475; J3490; J7030